=== PATIENT | male | born 1960 | race Two or more races ===

== ENCOUNTER 2018-08-31 15:36 | Emergency (ER) | payer SELFPAY ==
[~2018-08-31] VITALS: Ht 182.9 cm; Wt 81.6 kg
[~2018-08-31 15:36] MED LIST: BENADRYL50 MG PO; CYCLOSPORINE100 MG PO; LASIX40 MG ORAL; LIBRIUM25 MG ORAL; LISINOPRIL10 MG ORAL; METFORMIN HCL500 M1 ORAL; NKM; OMEPRAZOLE20 M2 PO; PEPCID40 MG PO; POTASSIUM CHLO20 ME1 ORAL; SPIRONOLACTONE25 MG PO; glucometer
[2018-08-31] MEDS ORDERED: NKM (15:37)
--- NOTE | 2018-08-31 15:43 | Emergency Room Report ---
History of Present Illness General Chief Complaint: Behavioral Complaint Source: Patient, EMS Present Illness HPI The patient is brought by EMS. His called. He has been binge drinking for the last several days. Prior to that he was sober since December. He has not been taking his medications for hypertension and diabetes. He told paramedics feels that he wants to . He told them his plan is to drink himself to . He denies suicidal ideation to me. The patient is complaining about chest pain. He feels it is sharp and somewhat positional anteriorly. It is not radiating. No prior history of seizures or ulcer disease. He denies DTs. No fevers, chills, palpitations, nausea, vomiting, diarrhea, dysuria, abdominal pain, shortness of breath, visual changes, headache. He denies coffee-ground emesis, hematemesis, melena or hematochezia. Allergies: Coded Allergies: No Known Allergies (Verified , 11/12/08) Patient History Past Medical History: see triage record Social History: Reports: alcohol use Social History Narrative Reviewed Nursing Documentation: PMH: Agreed; PSxH: Agreed Nursing Documentation-PMH Hx Cardiac Problems: Yes - alcohol abuse Hx Hypertension: Yes Hx Diabetes: Yes Hx Neurological Problems: Yes - BRAIN TUMOR Review of Systems All Other Systems: negative except mentioned in HPI Physical Exam Vital Signs Date Time Temp Pulse Resp B/P (MAP) Pulse Ox O2 Delivery O2 Flow Rate FiO2 08/31/18 15:33 99.1 113 18 158/92 (114) 96 Room Air Sp02 EP Interpretation: reviewed, normal General Appearance: normal inspection, no apparent distress, GCS 15, non-toxic , other - Depressed Head: normocephalic Eyes: bilateral eye PERRL, bilateral eye Scleral Injection ENT: moist mucus membranes Neck: supple, no bony tend Respiratory: chest non-tender, lungs clear Cardiovascular #1: regular rate, rhythm Cardiovascular #2: 2+ radial (R) Gastrointestinal: normal inspection, normal bowel sounds, non tender, no mass, non-distended Musculoskeletal: back normal, gait/station normal, normal range of motion Neurologic: alert, oriented x3, director chemistry III-XII nml as tested, motor strength/tone normal, DTRs symmetric, sensory intact, cerebellar normal, speech normal Psychiatric: no suicidal/homicidal ideation, depressed affect Skin: no rash Medical Decision Making Diagnostic Impression: Primary Impression: Abdominal pain Qualified Codes: R10.13 - Epigastric pain Additional Impressions: Hyperglycemia Alcohol intoxication Qualified Codes: F10.929 - Alcohol use, unspecified with intoxication, unspecified ER Course The patient presents with chest pain and suicidal ideation after binge drinking and not taking his medications for diabetes and blood pressure. Differential includes acute myocardial infarction, esophagitis, gastritis, suicidal ideation , exacerbation of depression, hyperglycemia, diabetic ketoacidosis, try to normality amongst others. The patient will be evaluated with EKG, chest x-ray and labs. The patient will receive IV hydration, Pepcid. The patient is placed on a shelter monitor. At some point the patient may need to have psychiatric evaluation. EKG was sinus tachycardia with nonspecific ST-T wave changes. Labs with elevated glucose and BAL. Insulin given IV. C/O pain. Tx with Pepcid and Mylanta. Pain better. States not suicidal. Wants med to help sleep. Awaiting repeat glucose. Accu-Chek 147. Patient improved and ambulatory. Patient stable for outpatient observation and treatment. Laboratory Tests Test 08/31/18 15:53 White Blood Count 6.6 K/UL (4.8-10.8) Red Blood Count 5.67 M/UL (4.70-6.10) Hemoglobin 16.9 G/DL (14.2-18.0) Hematocrit 48.9 % (42.0-52.0) Mean Corpuscular Volume 86 FL (80-99) Mean Corpuscular Hemoglobin 29.8 PG (27.0-31.0) Mean Corpuscular Hemoglobin Concent 34.6 G/DL (32.0-36.0) Red Cell Distribution Width 10.8 % (11.6-14.8) L Platelet Count 276 K/UL (150-450) Mean Platelet Volume 5.2 FL (6.5-10.1) L Neutrophils (%) (Auto) 50.8 % (45.0-75.0) Lymphocytes (%) (Auto) 38.9 % (20.0-45.0) Monocytes (%) (Auto) 8.0 % (1.0-10.0) Eosinophils (%) (Auto) 1.7 % (0.0-3.0) Basophils (%) (Auto) 0.7 % (0.0-2.0) Urine Color Pale yellow Urine Appearance Clear Urine pH 6.5 (4.5-8.0) Urine Specific [place] 1.005 (1.005-1.035) Urine Protein Negative (NEGATIVE) Urine Glucose (UA) 4+ (NEGATIVE) H Urine Ketones Negative (NEGATIVE) Urine Blood Negative (NEGATIVE) Urine Nitrite Negative (NEGATIVE) Urine Bilirubin Negative (NEGATIVE) Urine Urobilinogen Normal MG/DL (0.0-1.0) Urine Leukocyte Esterase Negative (NEGATIVE) Sodium Level 138 MMOL/L (136-145) Potassium Level 3.5 MMOL/L (3.5-5.1) Chloride Level 101 MMOL/L (98-107) Carbon Dioxide Level 26 MMOL/L (21-32) Anion Gap 11 mmol/L (5-15) Blood Urea Nitrogen 9 mg/dL (7-18) Creatinine 0.8 MG/DL (0.55-1.30) Estimate Glomerular Filtration Rate > 60 mL/min (>60) Glucose Level 366 MG/DL (74-106) H Calcium Level 8.5 MG/DL (8.5-10.1) Total Bilirubin 0.5 MG/DL (0.2-1.0) Aspartate Amino Transferase (AST) 41 U/L (15-37) H Alanine Aminotransferase (ALT) 44 U/L (12-78) Alkaline Phosphatase 94 U/L (46-116) Total Creatine Kinase 269 U/L (26-308) Troponin I 0.000 ng/mL (0.000-0.056) Total Protein 8.1 G/DL (6.4-8.2) Albumin 3.6 G/DL (3.4-5.0) Globulin 4.5 g/dL Albumin/Globulin Ratio 0.8 (1.0-2.7) L Salicylates Level 1.1 ug/mL (2.8-20) L Urine Opiates Screen Negative (NEGATIVE) Acetaminophen Level < 2 MCG/ML (10-30) L Urine Barbiturates Screen Negative (NEGATIVE) Phencyclidine (PCP) Screen Negative (NEGATIVE) Urine Amphetamines Screen Negative (NEGATIVE) Urine Benzodiazepines Screen Negative (NEGATIVE) Urine Cocaine Screen Negative (NEGATIVE) Urine Marijuana (THC) Screen Negative (NEGATIVE) Serum Alcohol 337 mg/dL EKG Diagnostic Results Rate: tachycardiac Rhythm: NSR ST Segments: no acute changes Rhythm Strip Diag. Results EP Interpretation: yes Rhythm: no PVC's, no ectopy, other - Sinus tachycardia Chest X-Ray Diagnostic Results Chest X-Ray Diagnostic Results : Chest X-Ray Ordered: Yes # of Views/Limited/Complete: 1 View Indication: Chest Pain EP Interpretation: Yes Interpretation: no consolidation, no effusion, no pneumothorax, other - Right upper lobe Impression: Other Electronically Signed by: Electronically signed by Michael Liu MD Last Vital Signs Date Time Temp Pulse Resp B/P (MAP) Pulse Ox O2 Delivery O2 Flow Rate FiO2 08/31/18 20:30 99.1 92 20 134/90 97 Room Air Status: improved Disposition: HOME, SELF-CARE Condition: Improved Scripts Famotidine (PEPCID AC) 20 Mg Tablet 20 MG PO DAILY, #20 TAB Prov: Michael Liu MD 08/31/18 Hydroxyzine Pamoate (VISTARIL) 25 Mg Capsule 25 MG PO Q8HR PRN for insomnia, #10 CAP Prov: Michael Liu MD 08/31/18 Michael Liu MD Aug 31, 2018 15:43
--- NOTE | 2018-08-31 16:00 | NUR ---
ED Nurse Note:pt. was BIBA from home with ETOH and anxiety problem, VSS, pt. is A/Ox4 ambulatory, blood and urine sent to labs, given IV fluids
[2018-08-31 16:10] LABS: APPEARANCE,URINE CLEAR; BILIRUBIN, URINE NEGATIVE (NEGATIVE); COLOR,URINE PALE YELLOW; GLUCOSE, URINE (UA) 4+ (NEGATIVE); KETONES,URINE NEGATIVE (NEGATIVE); LEUKOCYTE ESTERASE ,URINE NEGATIVE (NEGATIVE); NITRITE,URINE NEGATIVE (NEGATIVE); PH,URINE 6.5 (4.5-8.0); PROTEIN,URINE NEGATIVE (NEGATIVE); UROBILINOGEN,URINE NORMAL MG/DL (0.0-1.0)
[2018-08-31 16:12] VITALS: BP 130/87
[2018-08-31 16:12] LABS: BASOPHILS % (AUTO) 0.7 % (0.0-2.0); EOSINOPHILS % (AUTO) 1.7 % (0.0-3.0); HEMATOCRIT 48.9 % (42.0-52.0); HEMOGLOBIN 16.9 G/DL (14.2-18.0); LYMPHOCYTES % (AUTO) 38.9 % (20.0-45.0); MEAN CORPUSCULAR VOLUME 86 FL (80-99); NEUTROPHILS % (AUTO) 50.8 % (45.0-75.0); PLATELET COUNT 276 K/UL (150-450); RED BLOOD COUNT 5.67 M/UL (4.70-6.10); RED CELL DISTRIBUTION WIDTH 10.8 % (11.6-14.8); WHITE BLOOD COUNT 6.6 K/UL (4.8-10.8)
[2018-08-31 16:31] LABS: ANION GAP 11 mmol/L (5-15); BLOOD UREA NITROGEN 9 mg/dL (7-18); CALCIUM 8.5 MG/DL (8.5-10.1); CARBON DIOXIDE 26 MMOL/L (21-32); CHLORIDE 101 MMOL/L (98-107); CREATININE 0.8 MG/DL (0.55-1.30); POTASSIUM 3.5 MMOL/L (3.5-5.1); SODIUM 138 MMOL/L (136-145)
[2018-08-31 16:37] LABS: ALANINE AMINOTRANSFERASE 44 U/L (12-78); ALBUMIN 3.6 G/DL (3.4-5.0); ALBUMIN/GLOBULIN RATIO 0.8 (1.0-2.7); ALKALINE PHOSPHATASE 94 U/L (46-116); ASPARTATE AMINO TRANSFERASE 41 U/L (15-37); BILIRUBIN,TOTAL 0.5 MG/DL (0.2-1.0); CREATINE KINASE 269 U/L (26-308)
[2018-08-31 17:16] VITALS: BP 116/65
[2018-08-31 18:49] VITALS: BP 134/90
[2018-08-31] MEDS ORDERED: Insulin Human Regular 100units/ml 3ml IV ONE (19:00)
[2018-08-31] MEDS ORDERED: Mylanta II UD 30ml ORAL ONE (19:00)
[2018-08-31] MEDS ORDERED: VISTARIL25 M1 PO (20:21)
[2018-08-31] MEDS ORDERED: PEPCID AC20 M2 PO (20:22)
[2018-08-31 20:30] VITALS: BP 134/90
--- NOTE | 2018-08-31 20:30 | NUR ---
ER DISCHARGE NOTE: Patient is cleared to be discharged per ERMD, pt is aox4, on room air, with stable vital signs. pt was given dc and prescription instructions, pt was able to verbalize understanding, pt id band and iv site removed without complications. pt is able to ambulate with steady gait. pt took all belongings.
--- NOTE | 2018-09-01 12:12 | Diagnostic Imaging Report ---
Indication: Chest pain Technique: One view of the chest Comparison: 08/03/2015 Findings: Lungs and pleural spaces are clear. Heart size is upper limits normal Impression: No acute process
== END 2018-08-31 20:30 | disposition home or self-care (01) ==
LOC: EDBD 15:36 → EMR 16:03
DX: R10.13 Epigastric pain (principal); F10.129 Alcohol abuse with intoxication, unspecified; I10 Essential (primary) hypertension; E11.65 Type 2 diabetes mellitus with hyperglycemia; R45.851 Suicidal ideations
CPT/HCPCS: 36415; 71045; 80053; 80307; 81003; 82550; 82962; 84484; 85025; 93005; 96361; 96374; 96375; 99284; G0480; J1815; J2405; S0028; 80329

== ENCOUNTER 2018-09-02 19:44 | Emergency (ER) | payer MEDICAID ==
[~2018-09-02] VITALS: Ht 180.3 cm; Wt 72.6 kg
[~2018-09-02 19:44] MED LIST changes: +PEPCID AC20 M2 PO; +VISTARIL25 M1 PO
--- NOTE | 2018-09-02 19:45 | NUR ---
ED Nurse Note: Patient biba RA 69 c/o ETOH. patient was just seen here 2 days ago. patient admits to drinking unknown amount, fingerstick glucose showed 346. patient is reporting of 8/10 pain in the lower abdomen area. patient is alert and oriented x4. IV startedo n left AC 18 gauge
[2018-09-02 19:47] VITALS: BP 148/88
[2018-09-02] MEDS ORDERED: Thiamine HCl 100 MG in D5W 55 ML IVPB ONE (20:00)
--- NOTE | 2018-09-02 20:09 | Emergency Room Report ---
History of Present Illness General Chief Complaint: Alcohol Intoxication Source: Patient, EMS Present Illness HPI 58-year-old male who has a history of diabetes and alcoholism presenting with EtOH intoxication. He says that he has been drinking every single day for 3 weeks straight. Says that his whole body feels " very bad". He is very tearful at bedside, he says that he has been cheating on his , said that yesterday he wanted to kill himself with a knife. But he said that he stopped himself after thinking about his grandchildren. He has not sought help for his alcoholism before. No head trauma no loss of consciousness. Says that he takes metformin for his diabetes and he has been compliant with this. Allergies: Coded Allergies: No Known Allergies (Verified , 11/12/08) Patient History Past Medical History: see triage record Past Surgical History: none Pertinent Family History: none Social History: Reports: alcohol use, drug use; Denies: smoking Reviewed Nursing Documentation: PMH: Agreed; PSxH: Agreed Nursing Documentation-PMH Hx Cardiac Problems: Yes - alcohol abuse Hx Hypertension: Yes Hx Diabetes: Yes Hx Neurological Problems: Yes - BRAIN TUMOR Review of Systems All Other Systems: negative except mentioned in HPI Physical Exam Vital Signs Date Time Temp Pulse Resp B/P (MAP) Pulse Ox O2 Delivery O2 Flow Rate FiO2 09/02/18 19:46 98.6 109 18 155/105 (122) 98 Room Air Sp02 EP Interpretation: reviewed, normal General Appearance: alert, GCS 15, moderate distress Head: normocephalic, atraumatic Eyes: bilateral eye normal inspection, bilateral eye PERRL, bilateral eye EOMI ENT: normal ENT inspection, normal pharynx, normal voice, moist mucus membranes Neck: normal inspection, full range of motion, supple Respiratory: normal inspection, lungs clear, normal breath sounds, no respiratory distress, no retraction, no wheezing, speaking full sentences, chest symmetrical Cardiovascular #1: normal inspection, regular rate, rhythm, no edema, normal capillary refill Cardiovascular #2: 2+ radial (R), 2+ radial (L) Gastrointestinal: normal inspection, non tender, soft, non-distended, no guarding Musculoskeletal: normal inspection, back normal, normal range of motion, non- tender Neurologic: alert, responsive, motor strength/tone normal, sensory intact, speech normal, other - intox Psychiatric: depressed affect, anxious Medical Decision Making Diagnostic Impression: Primary Impression: Acute alcoholic intoxication Additional Impressions: Hyperglycemia Depression ER Course 58-year-old male, EtOH DDX: Alcohol intoxication, also voicing suicidal thoughts, depression, hyperglycemia rule out DKA Plan: Obtain labs, ua, ucx, CXR, EKG May need psychiatric evaluation ER course: Patient has remained stable during ED stay. Given IV fluids Patient given Ativan, getting very agitated Signed the patient to Dr. Jones She is pending full sobriety, also voiced suicidal thoughts and said that he attempted to kill himself yesterday with a knife, will need reassessment after his sobriety and may need psychiatric consult Please note that this Emergency Department Report was dictated using [employer] technology software, occasionally this can lead to erroneous entry secondary to interpretation by the dictation equipment EKG Diagnostic Results EP Interpretation: Yes Rate: 100 Rhythm: NSR ST Segments: T wave inversion V2 ASA given to patient: No Laboratory Tests Test 09/02/18 20:00 White Blood Count 11.0 K/UL (4.8-10.8) H Red Blood Count 5.69 M/UL (4.70-6.10) Hemoglobin 16.9 G/DL (14.2-18.0) Hematocrit 48.9 % (42.0-52.0) Mean Corpuscular Volume 86 FL (80-99) Mean Corpuscular Hemoglobin 29.7 PG (27.0-31.0) Mean Corpuscular Hemoglobin Concent 34.6 G/DL (32.0-36.0) Red Cell Distribution Width 10.7 % (11.6-14.8) L Platelet Count 265 K/UL (150-450) Mean Platelet Volume 5.5 FL (6.5-10.1) L Neutrophils (%) (Auto) 75.8 % (45.0-75.0) H Lymphocytes (%) (Auto) 18.5 % (20.0-45.0) L Monocytes (%) (Auto) 5.2 % (1.0-10.0) Eosinophils (%) (Auto) 0.1 % (0.0-3.0) Basophils (%) (Auto) 0.4 % (0.0-2.0) Urine Color Pale yellow Urine Appearance Clear Urine pH 6 (4.5-8.0) Urine Specific [place] 1.010 (1.005-1.035) Urine Protein Negative (NEGATIVE) Urine Glucose (UA) 4+ (NEGATIVE) H Urine Ketones Negative (NEGATIVE) Urine Blood Negative (NEGATIVE) Urine Nitrite Negative (NEGATIVE) Urine Bilirubin Negative (NEGATIVE) Urine Urobilinogen Normal MG/DL (0.0-1.0) Urine Leukocyte Esterase Negative (NEGATIVE) Sodium Level 136 MMOL/L (136-145) Potassium Level 3.4 MMOL/L (3.5-5.1) L Chloride Level 100 MMOL/L (98-107) Carbon Dioxide Level 24 MMOL/L (21-32) Anion Gap 12 mmol/L (5-15) Blood Urea Nitrogen 13 mg/dL (7-18) Creatinine 0.9 MG/DL (0.55-1.30) Estimate Glomerular Filtration Rate > 60 mL/min (>60) Glucose Level 393 MG/DL (74-106) H Calcium Level 8.2 MG/DL (8.5-10.1) L Magnesium Level 2.0 MG/DL (1.5-2.4) Total Bilirubin 0.5 MG/DL (0.2-1.0) Aspartate Amino Transferase (AST) 42 U/L (15-37) H Alanine Aminotransferase (ALT) 54 U/L (12-78) Alkaline Phosphatase 85 U/L (46-116) Troponin I 0.000 ng/mL (0.000-0.056) Total Protein 7.7 G/DL (6.4-8.2) Albumin 3.5 G/DL (3.4-5.0) Globulin 4.2 g/dL Albumin/Globulin Ratio 0.8 (1.0-2.7) L Lipase 97 U/L (73-393) Salicylates Level 1.1 ug/mL (2.8-20) L Urine Opiates Screen Negative (NEGATIVE) Acetaminophen Level < 2 MCG/ML (10-30) L Urine Barbiturates Screen Negative (NEGATIVE) Phencyclidine (PCP) Screen Negative (NEGATIVE) Urine Amphetamines Screen Negative (NEGATIVE) Urine Benzodiazepines Screen Negative (NEGATIVE) Urine Cocaine Screen Negative (NEGATIVE) Urine Marijuana (THC) Screen Negative (NEGATIVE) Serum Alcohol 371 mg/dL Acetone Level Negative (NEGATIVE) Last Vital Signs Date Time Temp Pulse Resp B/P (MAP) Pulse Ox O2 Delivery O2 Flow Rate FiO2 09/02/18 19:46 98.6 109 18 155/105 (122 98 Room Air Gregg Ornelas M.D. Sep 02, 2018 20:09
[2018-09-02 20:26] LABS: APPEARANCE,URINE CLEAR; BILIRUBIN, URINE NEGATIVE (NEGATIVE); COLOR,URINE PALE YELLOW; GLUCOSE, URINE (UA) 4+ (NEGATIVE); KETONES,URINE NEGATIVE (NEGATIVE); LEUKOCYTE ESTERASE ,URINE NEGATIVE (NEGATIVE); NITRITE,URINE NEGATIVE (NEGATIVE); PH,URINE 6 (4.5-8.0); PROTEIN,URINE NEGATIVE (NEGATIVE); UROBILINOGEN,URINE NORMAL MG/DL (0.0-1.0)
[2018-09-02 20:27] LABS: BASOPHILS % (AUTO) 0.4 % (0.0-2.0); EOSINOPHILS % (AUTO) 0.1 % (0.0-3.0); HEMATOCRIT 48.9 % (42.0-52.0); HEMOGLOBIN 16.9 G/DL (14.2-18.0); LYMPHOCYTES % (AUTO) 18.5 % (20.0-45.0); MEAN CORPUSCULAR VOLUME 86 FL (80-99); MONOCYTES % (AUTO) 5.2 % (1.0-10.0); NEUTROPHILS % (AUTO) 75.8 % (45.0-75.0); PLATELET COUNT 265 K/UL (150-450); RED BLOOD COUNT 5.69 M/UL (4.70-6.10); RED CELL DISTRIBUTION WIDTH 10.7 % (11.6-14.8)
[2018-09-02 20:35] LABS: ANION GAP 12 mmol/L (5-15); BLOOD UREA NITROGEN 13 mg/dL (7-18); CALCIUM 8.2 MG/DL (8.5-10.1); CARBON DIOXIDE 24 MMOL/L (21-32); CHLORIDE 100 MMOL/L (98-107); CREATININE 0.9 MG/DL (0.55-1.30); POTASSIUM 3.4 MMOL/L (3.5-5.1); SODIUM 136 MMOL/L (136-145)
[2018-09-02 20:50] LABS: ALANINE AMINOTRANSFERASE 54 U/L (12-78); ALBUMIN 3.5 G/DL (3.4-5.0); ASPARTATE AMINO TRANSFERASE 42 U/L (15-37); BILIRUBIN,TOTAL 0.5 MG/DL (0.2-1.0)
[2018-09-02 20:51] LABS: ALBUMIN/GLOBULIN RATIO 0.8 (1.0-2.7); ALKALINE PHOSPHATASE 85 U/L (46-116)
[2018-09-02] MEDS ORDERED: LORazepam Inj 2mg/ml 1ml IV ONE (21:00)
--- NOTE | 2018-09-02 21:57 | NUR ---
ED Nurse Note: patient sleeping calmy at bedside
[2018-09-03 00:01] VITALS: BP 132/82
[2018-09-03 01:35] VITALS: BP 128/79
[2018-09-03 02:46] VITALS: BP 122/72
--- NOTE | 2018-09-03 02:46 | NUR ---
HAND-OFF: Report given to MIESHA Ace.
--- NOTE | 2018-09-03 03:00 | NUR ---
ED Nurse Note: Received Pt and report from MIESHA Garcia, knowing Pt will have psy eval in the morning. Continue monitor Pt.
[2018-09-03] MEDS ORDERED: LIBRIUM25 MG ORAL (04:40)
[2018-09-03] MEDS ORDERED: chlordiazePOXIDE 25mg Cap ORAL ONE (04:45)
[2018-09-03 05:30] VITALS: BP 131/81
--- NOTE | 2018-09-03 05:30 | NUR ---
ED Nurse Note: Recieved pt from bed 4, pt is here pending sober for discharge, pt is in bed awake, alert and oriented x 4, pt was ambulated by avila Villagran and states pt is not safe for discharge, gait is very unsteady and pt has no family member that drives to come get him, pt also noted with mild tremors and hiccups, v/s taken, denies cp or any pain, no sob or labored breathing, will allow more time to sober before discharge, pt given water and tolerating well.
--- NOTE | 2018-09-03 06:30 | NUR ---
ED Nurse Note: pt in bed more awake and alert, pt is very unsteady and can not walk at this time, pt has severe tremors also, pt states he has no one who can come get him and his daughter will call ub[employer] for him, tp is not safe to travel in uber alone at this time, pt given sandwich and water, denies pain, no sob or labored breathing noted, will continue to monitor and give report to am nurse to resume care and follow for discharge.
[2018-09-03 07:35] VITALS: BP 142/92
--- NOTE | 2018-09-03 07:35 | NUR ---
ED Nurse Note: Pt cleared by health care Provider for discharge. DC instructions/prescription was given and explained to pt and verbalized understanding of teachings. All medical devices such as ID band removed. Pt is AAO x4, ambulatory and left with all personal belongings. pt calling family to hot die picker pt. pt amb steady gait to waiting room
--- NOTE | 2018-09-03 14:12 | Diagnostic Imaging Report ---
Indication: Chest pain Comparison: 08/31/2018 A single view chest radiograph was obtained. Findings: Borderline cardiomegaly is present. Lungs are clear but hypoinflated. Bones are unremarkable. IMPRESSION: No acute disease
--- NOTE | 2018-09-03 17:05 | Cardiology Report ---
APPROVED REPORT EKG Measurement Heart [id number] Normal sinus rhythm Possible Left atrial enlargement Rightward axis Incomplete right bundle branch block Cannot rule out Anterior infarct, age undetermined Abnormal ECG
== END 2018-09-03 07:35 | disposition home or self-care (01) ==
LOC: EDBD 19:44 → EMR 20:48
DX: F10.129 Alcohol abuse with intoxication, unspecified (principal); F32.9 Major depressive disorder, single episode, unspecified; E11.65 Type 2 diabetes mellitus with hyperglycemia; I10 Essential (primary) hypertension; Z91.14 Patient's other noncompliance with medication regimen; R45.851 Suicidal ideations
CPT/HCPCS: 36415; 71045; 80053; 80307; 80329; 81003; 82009; 83690; 83735; 84484; 85025; 93005; 96361; 96365; 96375; 99284

== ENCOUNTER 2019-02-01 15:45 | Inpatient (IN) | payer MEDICAID ==
[~2019-02-01] VITALS: Ht 180.3 cm; Wt 79.5 kg
[2019-02-01 16:05] VITALS: BP 153/84
--- NOTE | 2019-02-01 16:05 | NUR ---
ED Nurse Note: Pt walked into ED w/ c/o abdominal pain midsection radiating to back pain 11/27. Pain started last night 2100. Pt vomited 2x last night. Pt is set up on monitor. Will cont to monitor. Abdomen soft and tender.
[2019-02-01] MEDS ORDERED: Ketorolac 30mg Inj IV ONE (16:15)
[2019-02-01 16:48] LABS: BASOPHILS % (AUTO) 0.6 % (0.0-2.0); EOSINOPHILS % (AUTO) 0.9 % (0.0-3.0); HEMATOCRIT 43.4 % (42.0-52.0); HEMOGLOBIN 15.4 G/DL (14.2-18.0); LYMPHOCYTES % (AUTO) 11.5 % (20.0-45.0); MEAN CORPUSCULAR VOLUME 84 FL (80-99); MONOCYTES % (AUTO) 6.7 % (1.0-10.0); NEUTROPHILS % (AUTO) 80.3 % (45.0-75.0); PLATELET COUNT 247 K/UL (150-450); RED BLOOD COUNT 5.15 M/UL (4.70-6.10); RED CELL DISTRIBUTION WIDTH 10.6 % (11.6-14.8); WHITE BLOOD COUNT 13.4 K/UL (4.8-10.8)
[2019-02-01 16:48] LABS: APPEARANCE,URINE CLEAR; BILIRUBIN, URINE NEGATIVE (NEGATIVE); GLUCOSE, URINE (UA) 2+ (NEGATIVE); KETONES,URINE 1+ (NEGATIVE); LEUKOCYTE ESTERASE ,URINE NEGATIVE (NEGATIVE); NITRITE,URINE NEGATIVE (NEGATIVE); PH,URINE 8 (4.5-8.0); PROTEIN,URINE 2+ (NEGATIVE); UROBILINOGEN,URINE NORMAL MG/DL (0.0-1.0)
[2019-02-01 16:49] LABS: COLOR,URINE YELLOW
[2019-02-01 16:51] LABS: ANION GAP 9 mmol/L (5-15); BLOOD UREA NITROGEN 17 mg/dL (7-18); CALCIUM 8.5 MG/DL (8.5-10.1); CARBON DIOXIDE 29 MMOL/L (21-32); CHLORIDE 100 MMOL/L (98-107); CREATININE 0.8 MG/DL (0.55-1.30); POTASSIUM 3.8 MMOL/L (3.5-5.1); SODIUM 137 MMOL/L (136-145)
[2019-02-01 16:55] LABS: ALANINE AMINOTRANSFERASE 29 U/L (12-78); ALBUMIN 3.9 G/DL (3.4-5.0); ALKALINE PHOSPHATASE 68 U/L (46-116); ASPARTATE AMINO TRANSFERASE 20 U/L (15-37); BILIRUBIN,TOTAL 0.5 MG/DL (0.2-1.0)
--- NOTE | 2019-02-01 17:21 | Emergency Room Report ---
History of Present Illness General Chief Complaint: Abdominal Pain Source: Patient Present Illness HPI 59-year-old male presents ED for evaluation. Complaining of abdominal pain with nausea and vomiting. Started last night. Pain is epigastric, burning, 8 out of 10, nonradiating. Denies chest pain or shortness of breath. Denies alcohol use. Denies any diarrhea. States he felt febrile at home. Afebrile here. Denies recent travel. No other aggravating relieving factors. Denies any other associated symptoms Allergies: Coded Allergies: No Known Allergies (Unverified , 10/12/06) Patient History Past Medical History: DM, HTN Pertinent Family History: none Social History: Denies: smoking, alcohol use, drug use Immunizations: UTD Reviewed Nursing Documentation: PMH: Agreed; PSxH: Agreed Nursing Documentation-PMH Past Medical History: No History, Except For Hx Hypertension: Yes Hx Diabetes: Yes Review of Systems All Other Systems: negative except mentioned in HPI Physical Exam Vital Signs Date Time Temp Pulse Resp B/P (MAP) Pulse Ox O2 Delivery O2 Flow Rate FiO2 02/01/19 15:51 97.7 91 20 164/92 (116) 99 Room Air 02/01/19 16:05 99 Sp02 EP Interpretation: reviewed, normal General Appearance: no apparent distress, alert, GCS 15, non-toxic Head: normocephalic, atraumatic Eyes: bilateral eye normal inspection, bilateral eye PERRL ENT: hearing grossly normal, normal pharynx, no angioedema, normal voice Neck: full range of motion, supple/symm/no masses Respiratory: chest non-tender, lungs clear, normal breath sounds, speaking full sentences Cardiovascular #1: regular rate, rhythm, no edema Cardiovascular #2: 2+ carotid (R), 2+ carotid (L), 2+ radial (R), 2+ radial (L) , 2+ dorsalis pedis (R), 2+ dorsalis pedis (L) Gastrointestinal: normal bowel sounds, soft, non-distended, no guarding, no rebound, tenderness - epigastric Rectal: deferred Genitourinary: normal inspection, no CVA tenderness Musculoskeletal: back normal, normal range of motion, gait/station normal, non- tender Neurologic: alert, motor strength/tone normal, oriented x3, sensory intact, responsive, speech normal Psychiatric: judgement/insight normal, memory normal, mood/affect normal, no suicidal/homicidal ideation Reflexes: 3+ bicep (R), 3+ bicep (L), 3+ tricep (R), 3+ tricep (L), 3+ knee (R) , 3+ knee (L) Lymphatic: no adenopathy Medical Decision Making Diagnostic Impression: Primary Impression: Cholecystitis ER Course Hospital Course 59 yo M presents with epigastric pain. Differential diagnoses include: ACS/SC, cholecystitis, small bowel obstruction Clinical course Patient placed on stretcher. panel monitor. After initial history and physical I ordered labs, IV fluids, EKG, pain medication and CT Labs - noted leukocytosis, Hb/Hct stable. electrolytes ok. LFTs ok CT A/P - cholecytitis Antibiotics given. Case discussed with Dr. Willams and he agreed to consult. Case discussed with Dr. Arredondo and he agreed to accept the patient to his service for further care and support I feel this is a highly complex case requiring extensive working including EKG/ Rhythm strip, Xray/CT/US, Blood/urine lab work, repeat exams while in ED, and administration of strong opiates/narcotics for pain control, admission to hospital or close patient follow up. Diagnosis - cholecystitis [facility] Labs Test 02/01/19 16:30 02/01/19 16:35 Urine Color Yellow Urine Appearance Clear Urine pH 8 (4.5-8.0) Urine Specific [place] 1.010 (1.005-1.035) Urine Protein 2+ (NEGATIVE) Urine Glucose (UA) 2+ (NEGATIVE) Urine Ketones 1+ (NEGATIVE) Urine Blood Negative (NEGATIVE) Urine Nitrite Negative (NEGATIVE) Urine Bilirubin Negative (NEGATIVE) Urine Urobilinogen Normal MG/DL (0.0-1.0) Urine Leukocyte Esterase Negative (NEGATIVE) Urine RBC 0-2 /HPF (0 - 0) Urine WBC 0-2 /HPF (0 - 0) Urine Squamous Epithelial Cells None /LPF (NONE/OCC) Urine Bacteria Few /HPF (NONE) White Blood Count 13.4 K/UL (4.8-10.8) Red Blood Count 5.15 M/UL (4.70-6.10) Hemoglobin 15.4 G/DL (14.2-18.0) Hematocrit 43.4 % (42.0-52.0) Mean Corpuscular Volume 84 FL (80-99) Mean Corpuscular Hemoglobin 29.8 PG (27.0-31.0) Mean Corpuscular Hemoglobin Concent 35.4 G/DL (32.0-36.0) Red Cell Distribution Width 10.6 % (11.6-14.8) Platelet Count 247 K/UL (150-450) Mean Platelet Volume 5.8 FL (6.5-10.1) Neutrophils (%) (Auto) 80.3 % (45.0-75.0) Lymphocytes (%) (Auto) 11.5 % (20.0-45.0) Monocytes (%) (Auto) 6.7 % (1.0-10.0) Eosinophils (%) (Auto) 0.9 % (0.0-3.0) Basophils (%) (Auto) 0.6 % (0.0-2.0) Sodium Level 137 MMOL/L (136-145) Potassium Level 3.8 MMOL/L (3.5-5.1) Chloride Level 100 MMOL/L (98-107) Carbon Dioxide Level 29 MMOL/L (21-32) Anion Gap 9 mmol/L (5-15) Blood Urea Nitrogen 17 mg/dL (7-18) Creatinine 0.8 MG/DL (0.55-1.30) Estimat Glomerular Filtration Rate > 60 mL/min (>60) Glucose Level 193 MG/DL (74-106) Calcium Level 8.5 MG/DL (8.5-10.1) Total Bilirubin 0.5 MG/DL (0.2-1.0) Aspartate Amino Transf (AST/SGOT) 20 U/L (15-37) Alanine Aminotransferase (ALT/SGPT) 29 U/L (12-78) Alkaline Phosphatase 68 U/L (46-116) Troponin I 0.009 ng/mL (0.000-0.056) Total Protein 7.7 G/DL (6.4-8.2) Albumin 3.9 G/DL (3.4-5.0) Globulin 3.8 g/dL Albumin/Globulin Ratio 1.0 (1.0-2.7) Lipase 141 U/L (73-393) EKG Diagnostic Results Rate: normal Rhythm: NSR ST Segments: no acute changes ASA given to the pt in ED: No Rhythm Strip Diag. Results EP Interpretation: yes Rhythm: NSR, no PVC's, no ectopy CT/MRI/US Diagnostic Results CT/MRI/US Diagnostic Results : Imaging Test Ordered: CT A/P Impression CT ABDOMEN & PELVIS With Contrast: EXAM: CT Abdomen and Pelvis With Intravenous Contrast CLINICAL HISTORY: ABD PAIN TECHNIQUE: Axial computed tomography images of the abdomen and pelvis with intravenous contrast. Coronal and sagittal reformatted images were created and reviewed. COMPARISON: Abdominal ultrasound of October 13, 2006. FINDINGS: Lung bases: The lung bases are unremarkable. ABDOMEN: Liver: Normal Gallbladder and bile ducts: Distended gallbladder with somewhat irregular wall thickening and multiple gallstones. Pancreas: Normal Spleen: Normal Adrenals: Normal . Kidneys and ureters: Normal Stomach and bowel: Normal Appendix: Normal . It measures 7.5 mm in diameter PELVIS: Bladder: Normal Reproductive: Normal ABDOMEN and PELVIS: Intraperitoneal space: No free intraperitoneal fluid or free intraperitoneal gas. Bones/joints: Unremarkable. No acute fracture. No dislocation. Soft tissues: Intramuscular lipoma in the left quadratus femoris muscle Vasculature: Normal. Lymph nodes: Normal . Last Vital Signs Date Time Temp Pulse Resp B/P (MAP) Pulse Ox O2 Delivery O2 Flow Rate FiO2 02/01/19 16:05 99 17 Room Air 99 02/01/19 16:05 98.5 153/84 99 Status: improved Disposition: ADMITTED INPATIENT Condition: Serious Gary Looney MD Feb 01, 2019 17:21
[2019-02-01] MEDS ORDERED: Morphine Sulfate 4mg/ml Inj (IV USE ONLY) IVP ONE (17:45)
[2019-02-01] MEDS ORDERED: Omnipaque-300 100ml vial INJ PRN (17:45)
[2019-02-01 18:05] VITALS: BP 150/78
--- NOTE | 2019-02-01 18:46 | Diagnostic Imaging Report ---
Clinical Indication: Abdominal pain, nausea, vomiting Technique: No oral contrast utilized, per emergency room physician request. IV administration nonionic contrast. Venous phase spiral acquisition obtained through the abdomen and pelvis. Multiplanar reconstructions were generated. Total dose length product 1475 mGycm. CTDIvol(s) 22 mGy. Dose reduction achieved using automated exposure control Comparison: none Findings: The appendix is mildly enlarged, measuring up to 8 mm diameter, and fluid-filled. There is only minimal if any infiltration of the periappendiceal fat, however. No extraluminal gas or fluid is evident. Normal caliber small bowel. No free or loculated intraperitoneal gas or fluid is evident. No evidence of colonic diverticulosis or diverticulitis. There is a small sliding-type hiatal hernia. Distal esophagus, stomach, duodenum are otherwise unremarkable. The liver demonstrates a 1.4 cm cyst within segment 8. Gallbladder contains multiple gallstones. There is some pericholecystic edema. No biliary ductal dilatation. The pancreas, spleen, adrenals, kidneys are unremarkable. No renal or ureteral calculi, hydronephrosis, or hydroureter. The lungs demonstrate posterior dependent atelectatic changes. The bones demonstrate degenerative spondylosis changes. Impression: Cholelithiasis. Gallbladder wall edema raises concern for acute cholecystitis Prominent fluid-filled appendix. Of doubtful significance given absence of periappendiceal inflammation, but the possibility of early acute appendicitis should also be considered Incidental findings small sliding-type hiatal hernia, right lobe liver cyst, degenerative spondylosis This essentially agrees with the preliminary interpretation provided overnight by [facility]eradiology service. Findings also discussed by phone with Dr. Willams at the time of interpretation The CT scanner at [facility] is accredited by the [employer] and the scans are performed using protocols designed to limit radiation exposure to as low as reasonably achievable to attain images of sufficient resolution adequate for diagnostic evaluation.
[2019-02-01] MEDS ORDERED: Piperacillin/Tazobactam 3.375 GM in NS 110 ML IVPB ONE (19:15)
--- NOTE | 2019-02-01 19:25 | NUR ---
ED Nurse Note: pt care endorsed by MIESHA Andujar. pt does not appear to be in any distress, spouse is at bedside. will continue to monitor
--- NOTE | 2019-02-01 19:55 | NUR ---
ED Nurse Note: pt is groaning and states that he is still in px, 4 mg of IV morphine given 30 min ago. ERMD notified.
[2019-02-01 20:13] VITALS: BP 150/98
[2019-02-01] MEDS ORDERED: HYDROmorphone 1mg/ml Carpuject IVP ONE (20:30)
--- NOTE | 2019-02-01 20:48 | NUR ---
ED Nurse Note: Report given to MIESHA Lanza
--- NOTE | 2019-02-01 22:00 | NUR ---
NURSE NOTES: patient transferred from ER by Nanci. AAOx4 in room air. pt c/o abdominal pain 08/27 and as order, morphine was given @ 2233. NS w/KCL 20 mEq @ 125ml/hr infusing. no acute distress noted. call light within reach. bed is the lowest position. will continue to provide plan of care.
[2019-02-01] MEDS: Morphine Sulfate 2mg/ml Inj(IV/IM USE ONLY) IVP PRN (22:33)
[2019-02-01] MEDS: NS w/KCl 20mEq 1000ml 1,000 ML IV SCH (22:39)
[2019-02-01] MEDS: NovoLOG Insulin Flexpen SUBQ SCH (22:40)
[2019-02-01] MEDS: Piperacillin/Tazobactam 3.375 GM in NS 110 ML IVPB SCH (23:40)
[2019-02-02] VITALS (12 sets, daily range): BP systolic 107–144; BP diastolic 61–86
--- NOTE | 2019-02-02 00:28 | Diagnostic Imaging Report ---
Indication: Abdominal pain, abnormal recent sonogram Technique: House-scale and duplex images of the upper abdomen were obtained Comparison: Abdomen pelvis CT performed earlier the same date Findings: Gallbladder demonstrates gallstones. Gallbladder wall is thickened, measuring up to 10 mm thick. There is pericholecystic fluid. Sonographic Zarate's sign is positive. Common bile duct measures 4 mm in diameter. No intrahepatic biliary ductal dilatation. Liver demonstrates equivocally increased echogenicity, could indicate fatty change. Portal vein and hepatic veins are patent. Pancreas is incompletely visualized due to overlying bowel gas, visualized pancreatic head somewhat prominent. Spleen is unremarkable. Left kidney measures 14 cm in length. Right kidney measures 11.1 cm length. Both kidneys demonstrate normal echogenicity. There is no hydronephrosis. No focal abnormality . Non-aneurysmal abdominal aorta . Impression: Cholelithiasis. Gallbladder wall thickening, pericholecystic fluid, and positive sonographic Zarate's sign raises concern for acute cholecystitis No biliary ductal dilatation Equivocally increased hepatic echogenicity, could indicate fatty change, although this is not corroborated by recent CT scan Note incomplete visualization of the pancreas. Pancreatic head appears somewhat prominent sonographically, but this is likewise not corroborated on recent CT Note that hepatic cysts described on recent CT scan is not sonographically evident.
[2019-02-02] MEDS: NS w/KCl 20mEq 1000ml 1,000 ML IV SCH ×3 (06:07→21:49)
[2019-02-02] MEDS: Piperacillin/Tazobactam 3.375 GM in NS 110 ML IVPB SCH ×3 (06:07→21:11)
[2019-02-02] MEDS: Morphine Sulfate 2mg/ml Inj(IV/IM USE ONLY) IVP PRN ×2 (06:07→10:56)
[2019-02-02] MEDS: NovoLOG Insulin Flexpen SUBQ SCH ×4 (06:09→21:10)
[2019-02-02 07:17] LABS: BASOPHILS % (AUTO) 0.3 % (0.0-2.0); EOSINOPHILS % (AUTO) 0.2 % (0.0-3.0); HEMATOCRIT 42.9 % (42.0-52.0); LYMPHOCYTES % (AUTO) 6.4 % (20.0-45.0); MEAN CORPUSCULAR VOLUME 85 FL (80-99); MONOCYTES % (AUTO) 8.8 % (1.0-10.0); NEUTROPHILS % (AUTO) 84.2 % (45.0-75.0); PLATELET COUNT 234 K/UL (150-450); RED BLOOD COUNT 5.03 M/UL (4.70-6.10); WHITE BLOOD COUNT 15.7 K/UL (4.8-10.8)
--- NOTE | 2019-02-02 07:47 | NUR ---
HAND-OFF: Report given to Kash WHITESIDE.
[2019-02-02 08:06] LABS: ALANINE AMINOTRANSFERASE 52 U/L (12-78); ALBUMIN 3.4 G/DL (3.4-5.0); ALKALINE PHOSPHATASE 56 U/L (46-116); ANION GAP 8 mmol/L (5-15); ASPARTATE AMINO TRANSFERASE 33 U/L (15-37); BILIRUBIN,DIRECT 0.2 MG/DL (0.0-0.3); BILIRUBIN,TOTAL 0.8 MG/DL (0.2-1.0); BLOOD UREA NITROGEN 11 mg/dL (7-18); CALCIUM 8.4 MG/DL (8.5-10.1); CARBON DIOXIDE 25 MMOL/L (21-32); CHLORIDE 101 MMOL/L (98-107); CREATININE 0.7 MG/DL (0.55-1.30); POTASSIUM 3.7 MMOL/L (3.5-5.1); SODIUM 134 MMOL/L (136-145)
[2019-02-02 08:26] LABS: INR 1.1 (0.9-1.1)
--- NOTE | 2019-02-02 11:02 | NUR ---
NURSE NOTES: patient is in procedure HIDA scan. Nurse was called to administer morphine in the middle of the procedure. Given slowly IVP 2mg morphine through RAC access.
--- NOTE | 2019-02-02 11:33 | NUR ---
NM Hepatobiliary (HIDA) scan complete.
--- NOTE | 2019-02-02 12:08 | Anethesia Preoperative Eval ---
Anesthesia Pre-op PMH/ROS General Date of Evaluation: Feb 02, 2019 Time of Evaluation: 13:11 Anesthesiologist: Kate ASA Score: ASA 3 Mallampati Score Class I : Soft palate, uvula, fauces, pillars visible Class II: Soft palate, uvula, fauces visible Class III: Soft palate, base of uvula visible Class IV: Only hard plate visible Mallampati Classification: Class II Surgeon: Imer Diagnosis: Acute Cholecystitis Surgical Procedure: Laparoscopic Cholecystectomy Anesthesia History: none Family History: no anesthesia problems Allergies: Coded Allergies: No Known Allergies (Unverified , 10/12/06) Medications: see eMAR Patient NPO?: Yes Past Medical History Cardiovascular: Reports: HTN Endocrine: Reports: DM Anesthesia Pre-op Phys. Exam Physician Exam Last Vital Signs Date Time Temp Pulse Resp B/P (MAP) Pulse Ox O2 Delivery O2 Flow Rate FiO2 02/02/19 11:26 100.6 02/02/19 08:00 93 20 132/80 (97) 98 93 02/02/19 00:55 Room Air 02/01/19 20:50 99 Constitutional: NAD Neurologic: CN 2-12 intact Cardiovascular: RRR Respiratory: CTA Gastrointestinal: S/NT/ND Airway Exam Mallampati Score: Class II MO: full ROM: full Teeth: missing, intact Anesthesia Pre-op A/P Labs Hematology Test 02/01/19 16:35 02/02/19 06:34 White Blood Count 13.4 K/UL (4.8-10.8) H 15.7 K/UL (4.8-10.8) H Red Blood Count 5.15 M/UL (4.70-6.10) 5.03 M/UL (4.70-6.10) Hemoglobin 15.4 G/DL (14.2-18.0) 15.0 G/DL (14.2-18.0) Hematocrit 43.4 % (42.0-52.0) 42.9 % (42.0-52.0) Mean Corpuscular Volume 84 FL (80-99) 85 FL (80-99) Mean Corpuscular Hemoglobin 29.8 PG (27.0-31.0) 29.8 PG (27.0-31.0) Mean Corpuscular Hemoglobin Concent 35.4 G/DL (32.0-36.0) 35.0 G/DL (32.0-36.0) Red Cell Distribution Width 10.6 % (11.6-14.8) L 11.0 % (11.6-14.8) L Platelet Count 247 K/UL (150-450) 234 K/UL (150-450) Mean Platelet Volume 5.8 FL (6.5-10.1) L 6.2 FL (6.5-10.1) L Neutrophils (%) (Auto) 80.3 % (45.0-75.0) H 84.2 % (45.0-75.0) H Lymphocytes (%) (Auto) 11.5 % (20.0-45.0) L 6.4 % (20.0-45.0) L Monocytes (%) (Auto) 6.7 % (1.0-10.0) 8.8 % (1.0-10.0) Eosinophils (%) (Auto) 0.9 % (0.0-3.0) 0.2 % (0.0-3.0) Basophils (%) (Auto) 0.6 % (0.0-2.0) 0.3 % (0.0-2.0) Coagulation Test 02/02/19 07:57 Prothrombin Time 11.3 SEC (9.30-11.50) Prothromb Time International Ratio 1.1 (0.9-1.1) Activated Partial Thromboplast Time 31 SEC (23-33) Chemistry Test 02/01/19 16:35 02/02/19 06:34 Sodium Level 137 MMOL/L (136-145) 134 MMOL/L (136-145) L Potassium Level 3.8 MMOL/L (3.5-5.1) 3.7 MMOL/L (3.5-5.1) Chloride Level 100 MMOL/L (98-107) 101 MMOL/L (98-107) Carbon Dioxide Level 29 MMOL/L (21-32) 25 MMOL/L (21-32) Anion Gap 9 mmol/L (5-15) 8 mmol/L (5-15) Blood Urea Nitrogen 17 mg/dL (7-18) 11 mg/dL (7-18) Creatinine 0.8 MG/DL (0.55-1.30) 0.7 MG/DL (0.55-1.30) Estimat Glomerular Filtration Rate > 60 mL/min (>60) > 60 mL/min (>60) Glucose Level 193 MG/DL (74-106) H 172 MG/DL (74-106) H Calcium Level 8.5 MG/DL (8.5-10.1) 8.4 MG/DL (8.5-10.1) L Total Bilirubin 0.5 MG/DL (0.2-1.0) 0.8 MG/DL (0.2-1.0) Aspartate Amino Transf (AST/SGOT) 20 U/L (15-37) 33 U/L (15-37) Alanine Aminotransferase (ALT/SGPT) 29 U/L (12-78) 52 U/L (12-78) Alkaline Phosphatase 68 U/L (46-116) 56 U/L (46-116) Troponin I 0.009 ng/mL (0.000-0.056) Total Protein 7.7 G/DL (6.4-8.2) 7.2 G/DL (6.4-8.2) Albumin 3.9 G/DL (3.4-5.0) 3.4 G/DL (3.4-5.0) Globulin 3.8 g/dL Albumin/Globulin Ratio 1.0 (1.0-2.7) Lipase 141 U/L (73-393) 88 U/L (73-393) Direct Bilirubin 0.2 MG/DL (0.0-0.3) Thyroid Stimulating Hormone (TSH) 0.347 uiU/mL (0.358-3.740) Risk Assessment & Plan Assessment: ASA 3 Plan: GA, SED, GlideScope Go Status Change Before Surgery: No Pre-Antibiotics Dru Grams Ancef IV Given Within 1 Hr of Incision: Yes Time Given: 13:41 Manjinder Love MD Feb 02, 2019 12:08
[2019-02-02] MEDS ORDERED: Lidocaine 1% MPF 10mg/ml 5ml ONE (12:29)
[2019-02-02] MEDS ORDERED: Propofol 200mg/20ml IV ONE (12:29)
[2019-02-02] MEDS ORDERED: Sodium Chloride 10ml vial INJ ONE (12:29)
[2019-02-02] MEDS ORDERED: fentaNYL 100 mcg/2 mL IV ONE ×2 (12:30→14:31)
[2019-02-02] MEDS ORDERED: LR 1000ml 1,000 ML IVLG SCH (12:37)
[2019-02-02] MEDS ORDERED: fentaNYL 100 mcg/2 mL IV PRN (12:45)
[2019-02-02] MEDS ORDERED: Hydromorphone 0.5mg/0.5ml inj IVP PRN (12:45)
[2019-02-02] MEDS ORDERED: Acetaminophen (Non formulary) 100 ML IV ONE (12:45)
[2019-02-02] MEDS ORDERED: Atropine Sulfate 0.4mg/ml inj IVP PRN (12:45)
[2019-02-02] MEDS ORDERED: LORazepam Inj 2mg/ml 1ml IV PRN (12:45)
[2019-02-02] MEDS ORDERED: DiphenhydrAMINE 50mg/ml Inj IVP PRN (12:45)
[2019-02-02] MEDS ORDERED: Midazolam 2mg/2ml Inj IVP PRN (12:45)
[2019-02-02] MEDS ORDERED: Labetalol 5mg/ml 20ml vial IV PRN (12:45)
[2019-02-02] MEDS ORDERED: HYDROcodone/Acetamin 5/325 tab ORAL PRN ×2 (12:45→16:15)
[2019-02-02] MEDS ORDERED: HYDROcodone/Acetamin 7.5/325 tab ORAL PRN (12:45)
[2019-02-02] MEDS ORDERED: Metoclopramide 10mg/2ml Inj IVP PRN ×2 (12:45→16:15)
[2019-02-02] MEDS ORDERED: oxyCODONE HCL/Acetaminophen 5/325mg ORAL PRN (12:45)
[2019-02-02] MEDS ORDERED: Meperidine 50mg/ml Inj(FOR RIGORS ONLY) IVP PRN (12:45)
--- NOTE | 2019-02-02 12:52 | NUR ---
NURSE NOTES: patient was transported to OR, by transported, went by bed. Daughters by his side, made aware. No consent as of yet as no order, SOLAR SALES ASSESSOR made aware. Also, reported no am PO med given, as it was not clarified under request. Patient in stable vs, still c/o pain after morphine given during HIDA procedure.
[2019-02-02] MEDS ORDERED: Lidocaine 1% 10mg/ml/Epi 0.005mg/ml 30ml vial INJ ONE ×2 (13:05→13:17)
[2019-02-02] MEDS ORDERED: Iothalamate Meglumine 60% 30ML INJ ONE ×2 (13:05→13:17)
--- NOTE | 2019-02-02 13:06 | Diagnostic Imaging Report ---
Indications: Abdominal pain, cholelithiasis Technique: IV administration 5.6 mCi 99 M technetium Choletec. Serial images obtained over the abdomen for 2 hrs. At one hour, 2 mg of morphine given IV Comparison: None Findings: Prompt tracer uptake within the liver. Extrahepatic bile ducts are seen at for minutes. Excretion into the duodenum demonstrated at 7 minutes. The gallbladder is never visualized Impression: Nonvisualized gallbladder, consistent with acute cholecystitis Patent common bile duct Dr. Willams previously notified of the findings
--- NOTE | 2019-02-02 13:19 | Pre-Procedure Note/Attestation ---
Pre-Procedure Note/Attestation Complete Prior to Procedure Planned Procedure: not applicable Procedure Narrative: Laparoscopic cholecystectomy, possible open, possible intraoperative cholangiogram, possible appendectomy Indications for Procedure Pre-Operative Diagnosis: acute cholecystitis possible acute appendicitis Attestation I attest that I discussed the nature of the procedure; its benefits; risks and complications; and alternatives (and the risks and benefits of such alternatives ), prior to the procedure, with the patient (or the patient's legal telemarketing sales representative). I attest that, if there was a reasonable possibility of needing a blood transfusion, the patient (or the patient's legal telemarketing sales representative) was given the [facility] standardized written summary, pursuant to the [place] Blood Safety Act ([place] Health and Safety Code # 1645, as amended). I attest that I re-evaluated the patient just prior to the surgery and that there has been no change in the patient's H&P, except as documented below: Douglas Willams Feb 02, 2019 13:19
--- NOTE | 2019-02-02 13:22 | Consultation ---
History of Present Illness General Date patient seen: Feb 02, 2019 Reason for Hospitalization: Abdominal Pain Present Illness HPI 59M with hx of DM on metformin presented to [facility] ED c/o right sided abdominal pain for 1 day. Pain associated with nausea and non bloody emesis. pain radiated to back. pain 8/10 RUQ and some RLQ. In ED noted to have leukocytosis and abnormal labs. US with acute tesfaye, CT with acute tesfaye and questionable possible acute appendicitis. Admitted for care and management, started on IV Abx, surgery called. worsening leukocytosis on ABX. HIDA positive. Allergies: Coded Allergies: No Known Allergies (Unverified , 10/12/06) Medication History Scheduled Acetaminophen* (Acetaminophen Extra Strength*), 500 MG ORAL Q6H, (Reported) Amlodipine Besylate* (Amlodipine Besylate*), 5 MG ORAL DAILY, (Reported) Aspirin* (Aspir 81*), 81 MG ORAL DAILY, (Reported) Atorvastatin Calcium* (Atorvastatin Calcium*), 40 MG ORAL BEDTIME, (Reported) Cholecalciferol (Vitamin D3) (Vitamin D3), 2,000 UNIT PO DAILY, (Reported) Lisinopril* (Lisinopril*), 40 MG ORAL DAILY, (Reported) Metformin Hcl* (Metformin Hcl*), 1,000 MG ORAL TWICE A DAY, (Reported) Scheduled PRN Blood Sugar Diagnostic (Blood Glucose Test Strip), 1 EACH [facility] PRN PRN for GLUCOSE MONITORING, (Reported) Patient History History Provided By: Patient Healthcare decision maker Resuscitation status Advanced Directive on File Past Medical/Surgical History Past Medical/Surgical History: (1) Abdominal pain (2) Acute cholecystitis (3) Acute appendicitis (4) Diabetes Review of Systems Review of Symptoms General ROS: no weight loss or fever Psychological ROS: no depression or mood changes, no memory loss Ophthalmic ROS: no visual changes or eye irritation ENT ROS: no nasal congestion, hearing loss, dizziness Allergy and Immunology ROS: no allergic symptoms or urticaria Hematological and Lymphatic ROS: no swollen glands, unusual bleeding or bruising Endocrine ROS: no polyuria, polydipsia, weight changes, temperature intolerance Respiratory ROS: no cough, shortness of breath, or wheezing Cardiovascular ROS: no chest pain or dyspnea on exertion Gastrointestinal ROS: abdominal pain, bright red blood in stool. Musculoskeletal ROS: no myalgias or arthralgias Neurological ROS: no TIA or stroke symptoms Dermatological ROS: no new or changing skin lesions, rashes or pruritis Physical Exam Physical Exam General appearance: alert, cooperative, no distress, appears stated age Head: Normocephalic, without obvious abnormality, atraumatic Eyes: conjunctivae/corneas clear. PERRL, EOM's intact. Fundi benign Throat: Lips, mucosa, and tongue normal. Teeth and gums normal Neck: supple, symmetrical, trachea midline, no adenopathy, thyroid: not enlarged, symmetric, no tenderness/mass/nodules, no carotid bruit and no JVD Lungs: clear to auscultation bilaterally Heart: regular rate and rhythm, S1, S2 normal, no murmur, click, rub or gallop Abdomen: soft, RUQ and RLQ tender. Bowel sounds normal. No masses, no organomegaly Extremities: extremities normal, atraumatic, no cyanosis or edema Pulses: 2+ and symmetric Skin: Skin color, texture, turgor normal. No rashes or lesions Neurologic: Grossly normal Last 24 Hour Vital Signs Date Time Temp Pulse Resp B/P (MAP) Pulse Ox O2 Delivery O2 Flow Rate FiO2 02/02/19 12:00 98.9 99 19 144/84 (104) 98 02/02/19 11:26 100.6 02/02/19 09:00 Room Air 02/02/19 08:00 100.6 93 20 132/80 (97) 98 93 02/02/19 04:00 98.7 73 22 144/86 (105) 97 02/02/19 00:55 Room Air 02/02/19 00:37 Room Air 02/01/19 22:38 80 132/68 02/01/19 20:50 98.5 60 20 150/98 100 Room Air 99 02/01/19 20:32 98.5 02/01/19 20:13 60 20 150/98 100 Room Air 02/01/19 18:05 98.1 66 18 150/78 95 Room Air 02/01/19 16:05 99 17 Room Air 99 02/01/19 16:05 98.5 56 17 153/84 99 Room Air 02/01/19 15:51 97.7 91 20 164/92 (116) 99 Room Air Intake and Output 02/01/19 02/02/19 19:00 07:00 Intake Total 1000 ml Output Total 500 ml Balance 1000 ml -500 ml Intake IV Total 1000 ml Output Urine Total 500 ml # Voids 1 Laboratory Tests Test 02/01/19 16:30 02/01/19 16:35 02/02/19 06:34 02/02/19 07:57 Urine Color Yellow Urine Appearance Clear Urine pH 8 (4.5-8.0) Urine Specific [place] 1.010 (1.005-1.035) Urine Protein 2+ (NEGATIVE) H Urine Glucose (UA) 2+ (NEGATIVE) H Urine Ketones 1+ (NEGATIVE) H Urine Blood Negative (NEGATIVE) Urine Nitrite Negative (NEGATIVE) Urine Bilirubin Negative (NEGATIVE) Urine Urobilinogen Normal MG/DL (0.0-1.0) Urine Leukocyte Esterase Negative (NEGATIVE) Urine RBC 0-2 /HPF (0 - 0) H Urine WBC 0-2 /HPF (0 - 0) Urine Squamous Epithelial Cells None /LPF (NONE/OCC) Urine Bacteria Few /HPF (NONE) White Blood Count 13.4 K/UL (4.8-10.8) H 15.7 K/UL (4.8-10.8) H Red Blood Count 5.15 M/UL (4.70-6.10) 5.03 M/UL (4.70-6.10) Hemoglobin 15.4 G/DL (14.2-18.0) 15.0 G/DL (14.2-18.0) Hematocrit 43.4 % (42.0-52.0) 42.9 % (42.0-52.0) Mean Corpuscular Volume 84 FL (80-99) 85 FL (80-99) Mean Corpuscular Hemoglobin 29.8 PG (27.0-31.0) 29.8 PG (27.0-31.0) Mean Corpuscular Hemoglobin Concent 35.4 G/DL (32.0-36.0) 35.0 G/DL (32.0-36.0) Red Cell Distribution Width 10.6 % (11.6-14.8) L 11.0 % (11.6-14.8) L Platelet Count 247 K/UL (150-450) 234 K/UL (150-450) Mean Platelet Volume 5.8 FL (6.5-10.1) L 6.2 FL (6.5-10.1) L Neutrophils (%) (Auto) 80.3 % (45.0-75.0) H 84.2 % (45.0-75.0) H Lymphocytes (%) (Auto) 11.5 % (20.0-45.0) L 6.4 % (20.0-45.0) L Monocytes (%) (Auto) 6.7 % (1.0-10.0) 8.8 % (1.0-10.0) Eosinophils (%) (Auto) 0.9 % (0.0-3.0) 0.2 % (0.0-3.0) Basophils (%) (Auto) 0.6 % (0.0-2.0) 0.3 % (0.0-2.0) Sodium Level 137 MMOL/L (136-145) 134 MMOL/L (136-145) L Potassium Level 3.8 MMOL/L (3.5-5.1) 3.7 MMOL/L (3.5-5.1) Chloride Level 100 MMOL/L (98-107) 101 MMOL/L (98-107) Carbon Dioxide Level 29 MMOL/L (21-32) 25 MMOL/L (21-32) Anion Gap 9 mmol/L (5-15) 8 mmol/L (5-15) Blood Urea Nitrogen 17 mg/dL (7-18) 11 mg/dL (7-18) Creatinine 0.8 MG/DL (0.55-1.30) 0.7 MG/DL (0.55-1.30) Estimat Glomerular Filtration Rate > 60 mL/min (>60) > 60 mL/min (>60) Glucose Level 193 MG/DL (74-106) H 172 MG/DL (74-106) H Calcium Level 8.5 MG/DL (8.5-10.1) 8.4 MG/DL (8.5-10.1) L Total Bilirubin 0.5 MG/DL (0.2-1.0) 0.8 MG/DL (0.2-1.0) Aspartate Amino Transf (AST/SGOT) 20 U/L (15-37) 33 U/L (15-37) Alanine Aminotransferase (ALT/SGPT) 29 U/L (12-78) 52 U/L (12-78) Alkaline Phosphatase 68 U/L (46-116) 56 U/L (46-116) Troponin I 0.009 ng/mL (0.000-0.056) Total Protein 7.7 G/DL (6.4-8.2) 7.2 G/DL (6.4-8.2) Albumin 3.9 G/DL (3.4-5.0) 3.4 G/DL (3.4-5.0) Globulin 3.8 g/dL Albumin/Globulin Ratio 1.0 (1.0-2.7) Lipase 141 U/L (73-393) 88 U/L (73-393) Direct Bilirubin 0.2 MG/DL (0.0-0.3) Thyroid Stimulating Hormone (TSH) 0.347 uiU/mL (0.358-3.740) Prothrombin Time 11.3 SEC (9.30-11.50) Prothromb Time International Ratio 1.1 (0.9-1.1) Activated Partial Thromboplast Time 31 SEC (23-33) Height (Feet): 5 Height (Inches): 11.00 Weight (Pounds): 185 Medications Current Medications Medications (Trade) Dose Ordered Sig/Bert Route PRN Reason Start Time Stop Time Status Last Admin Dose Admin Acetaminophen (Tylenol) 650 mg Q4H PRN ORAL RING/fevers/mild pain 02/01/19 20:45 03/03/19 20:44 Acetaminophen/ Hydrocodone Bitart (Mobile 5/325) 1 tab Q1H PRN ORAL Mild Pain (Pain Scale 1-3) 02/02/19 12:45 02/02/19 19:00 Acetaminophen/ Hydrocodone Bitart (Mobile 7.5/325) 1 tab Q1H PRN ORAL Moderate Pain (Pain Scale 4-6) 02/02/19 12:45 02/02/19 19:00 Al Hydroxide/Mg Hydroxide (Mylanta) 15 ml Q1H PRN ORAL gi upset 02/02/19 12:45 02/02/19 19:00 Amlodipine Besylate (Norvasc) 5 mg EVERY 12 HOURS ORAL 02/01/19 21:00 03/03/19 20:59 02/01/19 22:38 Atropine Sulfate (Atropine 0.4mg/ ml) 0.5 mg Q5M PRN IVP HR<40 02/02/19 12:45 02/02/19 19:00 Dextrose (Dextrose 50%) 25 ml Q30M PRN IV Hypoglycemia 02/01/19 20:45 03/03/19 20:44 Dextrose (Dextrose 50%) 50 ml Q30M PRN IV Hypoglycemia 02/01/19 20:45 03/03/19 20:44 Diphenhydramine HCl (Benadryl) 25 mg Q15M PRN IVP Itching 02/02/19 12:45 02/02/19 19:00 Fentanyl Citrate (Sublimaze 100 mcg/2 mL) 25 mcg Q10M PRN IV Moderate Pain (Pain Scale 4-6) 02/02/19 12:45 02/02/19 19:00 Heparin Sodium (Porcine) (Heparin 5000 units/ml) 5,000 units ONCE ONCE SUBQ 02/02/19 21:00 02/02/19 21:01 Hydralazine HCl (Apresoline) 5 mg Q30M PRN IV SBP>160 / DBP>90 02/02/19 12:45 02/02/19 19:00 Hydromorphone HCl (Dilaudid) 0.5 mg Q15M PRN IVP Severe Pain (Pain Scale 7-10) 02/02/19 12:45 02/02/19 19:00 Insulin Aspart (NovoLOG) BEFORE MEALS AND HS SUBQ 02/01/19 22:00 03/03/19 21:59 02/02/19 06:09 Iohexol (OMNIPAQUE-300 100ml) 100 ml NOW PRN INJ Radiology Procedure 02/01/19 17:45 02/03/19 17:45 Labetalol HCl (Normodyne) 5 mg Q10M PRN IV SBP>160 / DBP>90 02/02/19 12:45 02/02/19 19:00 Lactated Ringer's 1,000 ml @ 10 mls/hr Q24H IVLG 02/02/19 12:37 02/02/19 14:36 Lorazepam (Ativan 2mg/ml 1ml) 1 mg Q15M PRN IV For Anxiety 02/02/19 12:45 02/02/19 19:00 Meperidine HCl (Demerol) 25 mg Q5M PRN IVP Shivering.May repeat x 1 02/02/19 12:45 02/02/19 19:00 Metoclopramide HCl (Reglan) 10 mg Q1H PRN IVP Nausea & Vomiting 02/02/19 12:45 02/02/19 19:00 Midazolam HCl (Versed 2mg/2ml vial) 1 mg Q15M PRN IVP For Anxiety 02/02/19 12:45 02/02/19 19:00 Morphine Sulfate (Morphine Sulfate) 2 mg Q3H PRN IVP PAIN 4-10 02/01/19 20:45 02/08/19 20:44 02/02/19 10:56 Ondansetron HCl (Zofran) 4 mg EVERY 4 HOURS PRN IVP Nausea & Vomiting 02/01/19 20:45 03/03/19 20:44 Ondansetron HCl (Zofran) 4 mg Q1H PRN IVP Nausea & Vomiting 02/02/19 12:45 02/02/19 19:00 Oxycodone/ Acetaminophen (Percocet 5-325) 1 tab Q1H PRN ORAL Severe Pain (Pain Scale 7-10) 02/02/19 12:45 02/02/19 19:00 Piperacillin Sod/ Tazobactam Sod 3.375 gm/Sodium Chloride 110 ml @ 27.5 mls/hr EVERY 8 HOURS IVPB 02/01/19 23:00 02/08/19 22:59 02/02/19 06:07 Potassium Chloride/Sodium Chloride 1,000 ml @ 125 mls/hr Q8H IV 02/01/19 22:00 03/03/19 21:59 02/02/19 06:07 Assessment/Plan Problem List: (1) Acute cholecystitis Assessment & Plan: This is a 59-year-old male with right quad abdominal pain, nausea, emesis, radiation to the back, leukocytosis, positive HIDA, ultrasound with thickened gallbladder wall cholelithiasis indicative of acute cholecystitis as well as CT with similar findings. Positive Zarate sign. Patient with worsening leukocytosis since admission on IV antibiotics failing medical therapy. Surgery is indicated and recommended. Risk-benefit altered discussed patient in detail. Patient expressed understanding consented surgery. N.p.o. IV fluids IV antibiotics Consent to OR for laparoscopic possible open cholecystectomy with potential intraoperative cholangiogram Thank you ICD Codes: K81.0 - Acute cholecystitis SNOMED: 08389236 (2) Abdominal pain Assessment & Plan: see above ICD Codes: R10.9 - Unspecified abdominal pain SNOMED: 94133369 (3) Acute appendicitis Assessment & Plan: Called by the radiologist and asked to evaluate the appendix on the operating room. CT scan clearly evident for acute cholecystitis but there is dilatation of the appendix identified on the CT scan as well and given plan on going operating room for labs of cholecystectomy was asked to evaluate for appendicitis as well given the rare potential chance of both conditions. Discussed with patient these findings he does have some right lower quadrant abdominal pain which could be referred from the right upper but given this will plan to evaluate the appendix to on the operating room. Consented for this as well. ICD Codes: K35.80 - Unspecified acute appendicitis SNOMED: 07990924 Douglas Willams Feb 02, 2019 13:22
[2019-02-02] MEDS ORDERED: Metoprolol Tartrate 5mg/5ml Inj ONE (13:44)
--- NOTE | 2019-02-02 13:55 | Immediate Post-Op Evaluation ---
Immediate Post-Op Evalulation Immediate Post-Op Evalulation Procedure: Laparoscopic Cholecystectomy Date of Evaluation: Feb 02, 2019 Time of Evaluation: 15:29 IV Fluids: 600 LR Blood Products: 0 Estimated Blood Loss: 100 Urinary Output: 0 Blood Pressure Systolic: 114 Blood Pressure Diastolic: 63 Pulse Rate: 78 Respiratory Rate: 16 O2 Sat by Pulse Oximetry: 100 Temperature (Fahrenheit): 98.2 Pain Score (1-10): 2 Nausea: No Vomiting: No Complications 0 Patient Status: awake, reacts, patent, extubated, none Hydration Status: adequate Dru Grams Ancef IV Given Within 1 Hr of Incision: Yes Time Given: 13:41 Manjinder Love MD Feb 02, 2019 13:55
[2019-02-02] MEDS ORDERED: Surgicel 4in x 8in TOPIC ONE (14:30)
[2019-02-02] MEDS ORDERED: Naloxone 0.4mg/ml Inj ONE (14:42)
[2019-02-02] MEDS ORDERED: Neostigmine 1mg/ml 10ml Inj ONE (14:42)
[2019-02-02] MEDS ORDERED: Glycopyrrolate 0.2mg/ml 1ml Vial ONE (14:42)
--- NOTE | 2019-02-02 16:13 | Brief Operative Note ---
Immediate Post Operative Note Operative Note Pre-op Diagnosis: acute cholecystitis possible acute appendicitis Procedure: Laparoscopic cholecystectomy Post-op Diagnosis: 1 acute gangrenous cholecystitis 2 normal appendix Surgeon: Douglas Willams Anesthesiologist: Manjinder Love Anesthesia: general, local Specimen: yes Complications: none Condition: stable Fluids: See records Estimated Blood Loss: minimal Drains: none Implant(s) used?: No Douglas Willams Feb 02, 2019 16:13
[2019-02-02] MEDS ORDERED: HYDROcodone/Acetamin 10/325 tab ORAL PRN (16:15)
[2019-02-02] MEDS ORDERED: Milk of Magnesia 30ml Ud ORAL PRN (16:19)
--- NOTE | 2019-02-02 19:15 | Operative Note - Dictated ---
DATE OF OPERATION: 02/02/2019 PREOPERATIVE DIAGNOSES: 1. Acute cholecystitis. 2. Possible acute appendicitis POSTOPERATIVE DIAGNOSES: 1. Acute gangrenous necrotic cholecystitis. 2. Normal appendix. OPERATION PERFORMED: Laparoscopic cholecystectomy. ATTENDING SURGEON: Douglas Willams M.D. CABLEWAY OPERATOR: None. ANESTHESIOLOGIST: Manjinder Love M.D. ANESTHESIA: General GETA plus local. ESTIMATED BLOOD LOSS: Minimal. IV FLUIDS: Please see anesthesia records. COMPLICATIONS: None. DRAINS: None. COUNTS: Sponge and needle count are correct x2. WOUND CONSULTATION: Class 3. SPECIMENS: Gallbladder and contained stones sent to pathology for review. ANTIBIOTICS: The patient on scheduled IV Zosyn for acute active infectious process. INDICATIONS FOR PROCEDURE: The patient is a 59-year-old male with history of diabetes presented to [facility] for evaluation of worsening right upper quadrant abdominal pain with associated nausea, emesis, and radiation of pain to the back. The patient had leukocytosis. Ultrasound consistent with acute cholecystitis and positive Zarate sign as well as a CT scan consistent with acute cholecystitis with thickened gallbladder wall, 1 cm pericholecystic fluid, inflammation, and ascites fluid. Furthermore on the CT, the radiologist evaluated the appendix identified to be fairly dilated and there was question of potential acute appendicitis as well. Given these findings, the patient was admitted for further care, management, placed on IV antibiotics, and subsequent 24 hours the pain persisted. Exam with persistent positive Zarate's and a worsening leukocytosis. HIDA scan was evaluated and cystic duct obstruction was noted. Given these findings, surgery was indicated and recommended. This patient was failing medical management of acute cholecystitis. Risks, benefits, alternatives were discussed with the patient in detail, expressed understanding and consented to surgery. OPERATIVE NOTE: The patient was taken to the operating room and placed on the operative table in supine position with bilateral arms out. All bony prominences were well padded. SCDs were placed. Preoperative time-out was taken identifying the patient, procedure, operative staff, and surgical staff. General anesthesia was induced and the patient was intubated. The abdomen was clipped, prepped, draped in standard surgical fashion. He was started on scheduled IV antibiotics. The patient voided prior to entering the operating room so no Freedman catheter was inserted. The abdomen was clipped, prepped, draped in standard surgical fashion. Local anesthetic was infiltrated in all skin incision port sites throughout the procedure for the patient's comfort. An infraumbilical incision was made using a number fresh #11 scalpel, carried down to the fascia, it was elevated and incised. Entry into the abdomen was obtained using open technique without complication. A 12 mm Jordon trocar was inserted and abdomen was insufflated to 12 to 15 mmHg. The patient tolerated the insufflation well. Laparoscope was inserted and the abdomen was inspected. There was no injury from initial trocar placement noted. There was fair amount of serous fluid identified throughout the abdomen in all quadrants of the pelvis. Secondary trocars were placed under direct visualization beginning with a 12 mm subxiphoid followed by two 5 mm subcostal ports. At this time, we turned our attention very quickly to the right lower quadrant where the cecum was identified and tenia was followed down to the confluence where a normal mildly dilated appendix was noted. No signs of inflammation or signs of induration, acute appendicitis, or early appendicitis identified. It was fairly large and completely normal appendix. At this time, we turned our attention to right upper quadrant. The omentum was draped over the gallbladder and gently dissected down. Once the gallbladder was identified, it was noted to be gangrenous and with area of necrosis. It was very distended and dilated and required drainage. A laparoscopic needle was used and the gallbladder was drained. The dome of the gallbladder was grasped using most lateral port and retracted over the liver. The infundibulum was gently dissected out. The critical view could be obtained. Once critical view could be obtained, it was clearly noted that there was short of cystic duct but appropriate enough for stapling without complication. The cystic artery was doubly clipped and divided. The only remaining structure entering into the gallbladder infundibulum was the cystic duct. The cystic duct was doubly clipped and divided. The gallbladder was taken off the liver bed using electrocautery. The gallbladder and contained stones were placed in endoscopic retrieval bag and removed from the abdomen using the umbilical port site. Hemostasis was obtained using electrocautery from the gallbladder fossa. Following this, the abdomen was irrigated with copious amounts of warm normal saline until clear and suctioned out. On completion of doing the ins and outs, it was noticed that 250 mL of fluid was evacuated over what had been irrigated given so likely approximately 200 mL plus serous fluid identified in the abdomen. At this time, Surgicel was placed in the gallbladder fossa and we began the conclusion of our procedure. Secondary trocars removed under direct visualization followed by the umbilical trocar site. The abdomen was desufflated. The umbilical trocar site fascia and the epigastric port site fascia were reapproximated using [id number] #0 Vicryl sutures. The remaining skin incisions were cleansed and reapproximated using 4-0 Monocryl subcuticular interrupted sutures. Steri-Strips and dressings were applied. The patient tolerated procedure well and was extubated and taken to postanesthetic care in stable condition. Douglas Willams M.D. DR: Fannie JOB#: [id number] CC: NARCISO
--- NOTE | 2019-02-02 20:00 | NUR ---
NURSE NOTES: Received patient awake in bed, able to make needs known, no s/s of acute distress. IS at the bedside, patient verbalized being taught by RT how to use it. IV access asymptomatic running IVF at 125ml/hr. Patient void x1 after procedure. Surgical dressing x3, dry and intact. Patient c/o of 5/10 pain, will administer pain medication as ordered by MD.
[2019-02-02] MEDS ORDERED: Heparin 5000 units/ml inj SUBQ ONE (21:00)
[2019-02-02] MEDS: HYDROmorphone 1mg/ml Carpuject IVP PRN (21:11)
[2019-02-03] VITALS: BP 104/72
--- NOTE | 2019-02-03 02:30 | History and Physical Report ---
DATE OF ADMISSION: 02/01/2019 REASON FOR ADMISSION: Acute cholecystitis. HISTORY OF PRESENT ILLNESS: This is a 59-year-old male with diabetes mellitus and hyperlipidemia. He presented to the emergency room with a one-day history of severe abdominal pain associated with nausea and emesis. The pain radiated to the back and located predominantly in the right lower quadrant. The patient apparently has had episodic bouts of this pain for several months, but over the past week, it has increased in frequency and severity. The patient had a CAT scan in the emergency room last night that suggested acute cholecystitis. Abdominal ultrasound today was confirmatory. PAST MEDICAL HISTORY: Hyperlipidemia, hypertension, type 2 diabetes mellitus. MEDICATIONS: Reviewed and reconciled. ALLERGIES: None known. SOCIAL HISTORY: Negative for smoking, alcohol, or substance abuse. FAMILY HISTORY: Noncontributory. REVIEW OF SYSTEMS: A 10-point review of systems was otherwise unremarkable. PHYSICAL EXAMINATION: VITAL SIGNS: Temperature 100.6, blood pressure 132/80, heart rate 93, respiratory rate 20. HEENT: Conjunctiva pink. Oropharynx clear. NECK: Supple. Jugular venous pressure normal. LUNGS: Clear. CARDIAC: Regular. Normal S1, S2 with no murmur. ABDOMEN: Soft, but tender in the right upper quadrant predominantly. No guarding. There is a positive Zarate sign and there is no edema. NEUROLOGIC: Nonfocal. LABORATORY DATA: White count 15.7, hemoglobin 15. Sodium 134, potassium 3.7, BUN 11, creatinine 0.7, glucose 172. TSH 0.34. Urinalysis with no active sediment. IMPRESSION: 1. Acute cholecystitis. 2. Leukocytosis. PLAN: 1. Continue IV antimicrobials mainly Zosyn as initiated last night. 2. NPO. 3. Insulin coverage by sliding scale. 4. Surgical evaluation in progress. 5. Anticipate cholecystectomy. 6. Perioperative risk under general anesthesia is not expected to be increased in general population. Michael Arredondo M.D. : IVORY JOB#: [id number] CC:
[2019-02-03] MEDS: NS w/KCl 20mEq 1000ml 1,000 ML IV SCH ×3 (03:27→20:38)
[2019-02-03 04:00] VITALS: BP 118/69
[2019-02-03] MEDS: Piperacillin/Tazobactam 3.375 GM in NS 110 ML IVPB SCH ×3 (05:06→21:36)
[2019-02-03] MEDS: NovoLOG Insulin Flexpen SUBQ SCH ×4 (05:39→20:57)
[2019-02-03] MEDS: HYDROmorphone 1mg/ml Carpuject IVP PRN (06:01)
[2019-02-03 07:16] LABS: BASOPHILS % (AUTO) 0.6 % (0.0-2.0); EOSINOPHILS % (AUTO) 1.1 % (0.0-3.0); HEMATOCRIT 38.9 % (42.0-52.0); HEMOGLOBIN 13.2 G/DL (14.2-18.0); LYMPHOCYTES % (AUTO) 10.2 % (20.0-45.0); MEAN CORPUSCULAR VOLUME 86 FL (80-99); MONOCYTES % (AUTO) 8.1 % (1.0-10.0); PLATELET COUNT 219 K/UL (150-450); RED BLOOD COUNT 4.51 M/UL (4.70-6.10); RED CELL DISTRIBUTION WIDTH 11.4 % (11.6-14.8); WHITE BLOOD COUNT 11.3 K/UL (4.8-10.8)
--- NOTE | 2019-02-03 07:26 | NUR ---
HAND-OFF: Report given to MIESHA Nieves.
--- NOTE | 2019-02-03 07:27 | NUR ---
NURSE NOTES: report received from Rolo. Patient awake and oriented x 4. Sitting in high fowlers position in bed eating breakfast. Does not complain of any nausea or vomiting. Patient complains of pain 7/10, will follow pain protocol. Patient does not want to wait for next dose of dilaudid. Inspected abdomen, patient reports slight pain with touch. Bowel sounds in all four quadrants. All four dressings are dry and intact. Patient has a 20 janice IV patent in the left AC. Bed in lowest position, locked, and call light within reach. Will continue to follow plan of care.
[2019-02-03 07:30] LABS: ALANINE AMINOTRANSFERASE 88 U/L (12-78); ALBUMIN 2.8 G/DL (3.4-5.0); ALBUMIN/GLOBULIN RATIO 0.7 (1.0-2.7); ALKALINE PHOSPHATASE 46 U/L (46-116); ANION GAP 6 mmol/L (5-15); ASPARTATE AMINO TRANSFERASE 62 U/L (15-37); BILIRUBIN,TOTAL 0.6 MG/DL (0.2-1.0); BLOOD UREA NITROGEN 14 mg/dL (7-18); CARBON DIOXIDE 27 MMOL/L (21-32); CHLORIDE 106 MMOL/L (98-107); CREATININE 0.9 MG/DL (0.55-1.30); POTASSIUM 3.6 MMOL/L (3.5-5.1); SODIUM 139 MMOL/L (136-145)
--- NOTE | 2019-02-03 07:56 | 48 Hour Post Anesthesia Eval ---
Post Anesthesia Evaluation Procedure: Laparoscopic Cholecystectomy Date of Evaluation: Feb 03, 2019 Blood Pressure Systolic: 118 0: 69 Pulse Rate: 75 Respiratory Rate: 18 Temperature (Fahrenheit): 98.3 O2 Sat by Pulse Oximetry: 98 Airway: patent Nausea: No Vomiting: No Pain Intensity: 2 Hydration Status: adequate Cardiopulmonary Status: at baseline Mental Status/LOC: patient returned to baseline Post-Anesthesia Complications: 0 Follow-up care needed: N/A - further care as per primary team Yael Klein MD Feb 03, 2019 07:56
[2019-02-03 08:00] VITALS: BP 101/71
[2019-02-03] MEDS: Docusate 100mg cap ORAL SCH ×2 (08:43→18:25)
--- NOTE | 2019-02-03 09:50 | NUR ---
PT EVALUATION NOTE Patient seen for initial evaluation. Patient presents with generalized weakness and pain s/p surgical procedure which affects patient's ability to perform mobility tasks. Patient requires SBA for bed mobility, transfers and ambulation. Patient able to ambulate 150 ft without assistive device with slowed velocity. Patient will benefit from skilled inpatient PT intervention to address strength, balance and safety for improved level of functional mobility. Patient is cleared to ambulate with nursing supervision. Recommend discharge home once medically cleared by MD. No DME needs anticipated at this time. Addendum: 02/03/19 at 1242 by SHANELLE VELAZQUEZ PT Amended: Links added.
--- NOTE | 2019-02-03 10:00 | NUR ---
NURSE NOTES: Patient OOB with PT. PT states that patient is able to get OOB with staff with minimal assistance. Patient denies any new pain after working with physical therapy.
[2019-02-03 12:00] VITALS: BP 110/69
[2019-02-03] MEDS ORDERED: NS Irrig 1000ml ONE (13:00)
[2019-02-03] MEDS ORDERED: Rocuronium Bromide 50mg/5ml Inj IV ONE (13:00)
[2019-02-03] MEDS ORDERED: LR 1000ml ONE (13:00)
[2019-02-03] MEDS ORDERED: Sterile Water Irrig 1000ml IRRIG ONE (13:00)
--- NOTE | 2019-02-03 14:17 | Surgery Progress Note ---
Surgery Progress Note Subjective Procedure Performed Laparoscopic cholecystectomy Symptoms: improved, tolerating diet, voiding well, passing flatus Objective Last 24 Hour Vital Signs Date Time Temp Pulse Resp B/P (MAP) Pulse Ox O2 Delivery O2 Flow Rate FiO2 02/03/19 12:00 98.0 87 18 110/69 (83) 99 02/03/19 09:00 Room Air 02/03/19 08:44 87 101/71 02/03/19 08:00 98.7 87 18 101/71 (81) 97 02/03/19 07:56 75 18 98 02/03/19 04:00 98.3 75 18 118/69 (85) 98 02/03/19 00:00 97.8 71 18 104/72 (83) 98 02/02/19 21:46 Room Air 02/02/19 21:41 98.0 02/02/19 21:10 80 111/66 02/02/19 20:00 98.3 84 19 114/71 (85) 98 02/02/19 16:25 98.0 80 17 111/66 100 Nasal Cannula 3 02/02/19 16:15 82 19 111/67 100 Nasal Cannula 3 02/02/19 16:00 82 18 116/78 100 Nasal Cannula 3 02/02/19 15:48 86 16 116/78 100 Simple Mask 6 02/02/19 15:38 85 15 113/64 100 Simple Mask 6 02/02/19 15:28 80 15 107/63 100 Simple Mask 6 02/02/19 15:23 77 16 110/61 100 Simple Mask 6 02/02/19 15:18 98.2 78 19 114/63 100 Simple Mask 6 02/02/19 15:15 78 16 100 I&O Intake and Output 02/02/19 02/03/19 19:00 07:00 Intake Total 900 ml Output Total 100 ml 950 ml Balance 800 ml -950 ml IV Total 900 ml Output Urine Total 950 ml Estimated Blood Loss 100 ml Dressing: dry Wound: clean Cardiovascular: RSR Respiratory: clear Abdomen: soft, non-tender, present bowel sounds, non-distended Extremities: no edema, no tenderness, no cyanosis Laboratory Tests Test 02/03/19 06:30 White Blood Count 11.3 K/UL (4.8-10.8) H Red Blood Count 4.51 M/UL (4.70-6.10) L Hemoglobin 13.2 G/DL (14.2-18.0) L Hematocrit 38.9 % (42.0-52.0) L Mean Corpuscular Volume 86 FL (80-99) Mean Corpuscular Hemoglobin 29.2 PG (27.0-31.0) Mean Corpuscular Hemoglobin Concent 33.9 G/DL (32.0-36.0) Red Cell Distribution Width 11.4 % (11.6-14.8) L Platelet Count 219 K/UL (150-450) Mean Platelet Volume 6.0 FL (6.5-10.1) L Neutrophils (%) (Auto) 80.0 % (45.0-75.0) H Lymphocytes (%) (Auto) 10.2 % (20.0-45.0) L Monocytes (%) (Auto) 8.1 % (1.0-10.0) Eosinophils (%) (Auto) 1.1 % (0.0-3.0) Basophils (%) (Auto) 0.6 % (0.0-2.0) Sodium Level 139 MMOL/L (136-145) Potassium Level 3.6 MMOL/L (3.5-5.1) Chloride Level 106 MMOL/L (98-107) Carbon Dioxide Level 27 MMOL/L (21-32) Anion Gap 6 mmol/L (5-15) Blood Urea Nitrogen 14 mg/dL (7-18) Creatinine 0.9 MG/DL (0.55-1.30) Estimat Glomerular Filtration Rate > 60 mL/min (>60) Glucose Level 130 MG/DL (74-106) H Calcium Level 8.0 MG/DL (8.5-10.1) L Total Bilirubin 0.6 MG/DL (0.2-1.0) Aspartate Amino Transf (AST/SGOT) 62 U/L (15-37) H Alanine Aminotransferase (ALT/SGPT) 88 U/L (12-78) H Alkaline Phosphatase 46 U/L (46-116) Total Protein 6.6 G/DL (6.4-8.2) Albumin 2.8 G/DL (3.4-5.0) L Globulin 3.8 g/dL Albumin/Globulin Ratio 0.7 (1.0-2.7) L Assessment Post-op Diagnosis 1 acute gangrenous cholecystitis 2 normal appendix Plan Problems: (1) Acute cholecystitis Assessment & Plan: This is a 59-year-old male with right quad abdominal pain, nausea, emesis, radiation to the back, leukocytosis, positive HIDA, ultrasound with thickened gallbladder wall cholelithiasis indicative of acute cholecystitis as well as CT with similar findings. Positive Zarate sign. s/p lap tesfaye doing better d/c planning for tomorrow (2) Abdominal pain Assessment & Plan: see above (3) Acute appendicitis Assessment & Plan: Called by the radiologist and asked to evaluate the appendix on the operating room. CT scan clearly evident for acute cholecystitis but there is dilatation of the appendix identified on the CT scan as well and given plan on going operating room for labs of cholecystectomy was asked to evaluate for appendicitis as well given the rare potential chance of both conditions. Discussed with patient these findings he does have some right lower quadrant abdominal pain which could be referred from the right upper but given this will plan to evaluate the appendix to on the operating room. Consented for this as well. Douglas Willams Feb 03, 2019 14:17
--- NOTE | 2019-02-03 15:11 | CDS Physician Query ---
Clarification is required for compliance, coding accuracy, and to reflect severity of illness for this patient Dear Dr. Michael Arredondo Date: 02/03/2019 CDS name: Charline Jean Clinical Documentation states: Op note: Acute gangrenous necrotic cholecystitis...59-year-old male with history of diabetes presented to [facility] for evaluation of worsening right upper quadrant abdominal pain with associated nausea, emesis, and radiation of pain to the back. The patient had leukocytosis. Vitals/labs on admission: WBC 13.4, OK 99, Tmax 98.5, RR 20 Treatment: IV pip-tazo According to the clinical indications above, please indicate below the condition PHYSICIAN RESPONSE: [] Sepsis [] SIRS [] SIRS with organ dysfunction [] Septic Shock [] Not applicable [] Other: Present on Admission: [] Yes [] No [] Clinically Undetermined Physician signature Date Please also document in your Progress Notes and/or Discharge Summary and indicate if the condition was present on admission. NARCISO
[2019-02-03 16:00] VITALS: BP 112/71
--- NOTE | 2019-02-03 19:16 | NUR ---
HAND-OFF: Report given to Rolo WHITESIDE.
--- NOTE | 2019-02-03 19:54 | NUR ---
NURSE NOTES: Received patient awake in bed, no s/s of acute distress, c/o 3/10 pain. IV access asymptomatic, patent, running IVF maintenance at 125ml/hr. Bed low and locked, IS at the bedside, patient wearing non slip socks. Surgical dressing dry and intact.
[2019-02-03 20:00] VITALS: BP 121/75
[2019-02-04] VITALS: BP 111/70
--- NOTE | 2019-02-04 02:15 | Progress Note ---
DATE: 02/03/2019 INTERNAL MEDICINE PROGRESS NOTE SUBJECTIVE: Postop day number #1, laparoscopic cholecystectomy. No nausea or vomiting. Minimal pain. Afebrile. OBJECTIVE: VITAL SIGNS: Blood pressure 110/69, respirations 18, pulse 87. LUNGS: Clear. CARDIAC: Regular. ABDOMEN: Slightly tender over the right upper quadrant, but no guarding. EXTREMITIES: Without edema. LABORATORY DATA: White count down to 11, hemoglobin 13. Chemistry panel within normal limits. IMPRESSION: 1. Acute cholecystitis. 2. Necrotic gallbladder, status post cholecystectomy. 3. Type 2 diabetes mellitus. 4. Hypertension. PLAN: 1. Continue antimicrobials. 2. Postop care. 3. Advance diet. 4. Surgical followup. Michael Arredondo M.D. DR: IVORY JOB#: [id number] CC:
[2019-02-04 04:00] VITALS: BP 109/69
[2019-02-04] MEDS: NS w/KCl 20mEq 1000ml 1,000 ML IV SCH (05:37)
[2019-02-04] MEDS: Piperacillin/Tazobactam 3.375 GM in NS 110 ML IVPB SCH ×2 (05:38→15:17)
[2019-02-04] MEDS: HYDROmorphone 1mg/ml Carpuject IVP PRN (05:42)
[2019-02-04] MEDS: NovoLOG Insulin Flexpen SUBQ SCH ×3 (05:45→17:20)
--- NOTE | 2019-02-04 07:00 | NUR ---
HAND-OFF: Report given to MIESHA Ace.
--- NOTE | 2019-02-04 07:05 | NUR ---
NURSE NOTES: Report received from Rolo WHITESIDE. Patient awake and alert x 4. Patient sitting up right in bed eating breakfast. Patient continues to tolerate regular diet. No complains of nausea or vomitting. Patient does report pain at this time. Educated the patient to call when wanting to get up and to get up and go for a walk. Urinal and call light within reach. Bed in lowest position, locked, and alarmed. will continue to follow plan of care.
[2019-02-04 08:00] VITALS: BP 128/72
--- NOTE | 2019-02-04 09:00 | NUR ---
PT NOTE Patient is at independent/supervised level for all functional mobility, skilled inpatient PT intervention no longer indicated. Patient discharged from PT, cleared to ambulate in Db ponce RN notified.
[2019-02-04] MEDS: Docusate 100mg cap ORAL SCH ×2 (09:02→17:21)
[2019-02-04 11:50] VITALS: BP 114/75
--- NOTE | 2019-02-04 14:36 | NUR ---
CASE MANAGEMENT:REVIEW 59 YR OLD MALE PRESENTED TO ER CC: ABDOMINAL PAIN AND FEVER 101.0 LAST NIGHT SI: CHOLECYSTITIS 97.7 91 20 164/92 99% ON RA WBC+13.4 IS: TYLENOL 500MG WILLOW ANALYST IV PEPCID IV TORADOL 1L NS BOLUS IV ZOFRAN IV MORPHINE IV ZOSYN IV DILAUDID US ABD CT ABD/PELVIS : TO MED/SURG 02/02/19 SI: ACUTE GANGRENOUS CHOLECYSTITIS 98.0 80 17 111/66 100% ON 3L/NC IS: TO SURGERY FOR LAP MERT : MED/SURG STATUS
--- NOTE | 2019-02-04 14:45 | NUR ---
CASE MANAGEMENT:REVIEW 02/04/19 SI: POD #2 S/P LAP MERT 98.9 74 19 114/75 97% ON RA IS: IV ZOSYN Q8HRS IVF+KCL@125/HR NORVASC PO Q12 : MED/SURG STATUS
[2019-02-04 16:03] VITALS: BP 117/71
--- NOTE | 2019-02-04 18:36 | Surgery Progress Note ---
Surgery Progress Note Subjective Procedure Performed Laparoscopic cholecystectomy Symptoms: improved, tolerating diet, voiding well, passing flatus, BM, pain decreased Objective Last 24 Hour Vital Signs Date Time Temp Pulse Resp B/P (MAP) Pulse Ox O2 Delivery O2 Flow Rate FiO2 02/04/19 16:03 99.5 85 21 117/71 (86) 98 85 02/04/19 11:50 98.9 74 19 114/75 (88) 97 74 02/04/19 09:02 78 128/72 02/04/19 09:00 Room Air 02/04/19 08:00 98.3 78 21 128/72 (90) 97 78 02/04/19 06:12 98.1 02/04/19 04:00 98.1 71 18 109/69 (82) 99 02/04/19 00:00 97.9 72 18 111/70 (84) 99 02/03/19 21:28 Room Air 02/03/19 20:55 77 121/75 02/03/19 20:00 98.7 77 18 121/75 (90) 99 I&O Intake and Output 02/03/19 02/04/19 19:00 07:00 Intake Total 1917.5 ml 637.5 ml Output Total 1300 ml 800 ml Balance 617.5 ml -162.5 ml Intake Oral 960 ml IV Total 957.5 ml 637.5 ml Output Urine Total 1300 ml 800 ml Dressing: dry Wound: clean Cardiovascular: RSR Respiratory: clear Abdomen: soft, non-tender, present bowel sounds, non-distended Extremities: no edema, no tenderness, no cyanosis Assessment Post-op Diagnosis 1 acute gangrenous cholecystitis 2 normal appendix Plan Problems: (1) Acute cholecystitis Assessment & Plan: This is a 59-year-old male with right quad abdominal pain, nausea, emesis, radiation to the back, leukocytosis, positive HIDA, ultrasound with thickened gallbladder wall cholelithiasis indicative of acute cholecystitis as well as CT with similar findings. Positive Zarate sign. s/p lap tesfaye doing better d/c planning (2) Abdominal pain Assessment & Plan: see above (3) Acute appendicitis Assessment & Plan: Called by the radiologist and asked to evaluate the appendix on the operating room. CT scan clearly evident for acute cholecystitis but there is dilatation of the appendix identified on the CT scan as well and given plan on going operating room for labs of cholecystectomy was asked to evaluate for appendicitis as well given the rare potential chance of both conditions. Discussed with patient these findings he does have some right lower quadrant abdominal pain which could be referred from the right upper but given this will plan to evaluate the appendix to on the operating room. Consented for this as well. Douglas Willams Feb 04, 2019 18:36
[2019-02-04] MEDS ORDERED: ACETAMINOPHEN-1 EAC1 ORAL (19:00)
--- NOTE | 2019-02-04 19:00 | NUR ---
NURSE NOTES: discharge instruction and prescription given to the patient. Patient will see Dr. Willams on 02/25/2019. Surgical site are clean and dry. patient knows when to seek for medical attention. Addendum: 02/04/19 at 1923 by NICKOLAS GALVEZ RN Patient will fill the medication form the pharmacy of choice. All belongings accounted for.
[2019-02-04] MEDS ORDERED: COLACE100 MG ORAL (19:01)
--- NOTE | 2019-02-04 19:20 | NUR ---
HAND-OFF: Report given to Shea and endorsed to d/c patient when patient's daughter arrives.
--- NOTE | 2019-02-04 21:16 | NUR ---
NURSE NOTES: Patient left unit with daughter, patient prescription and packet handed to daughter. Surgical dressing/s dry and intact. IV removed, hospital bracelet removed. Patient left with daughter in private vehicle.
--- NOTE | 2019-02-06 13:27 | Discharge Summary ---
Discharge Summary Discharge Summary _ DATE OF ADMISSION: 02/01/2019 DATE OF DISCHARGE: 02/04/2019 DISCHARGED BY: REASON FOR ADMISSION: 89 years old male with past medical history of diabetes mellitus and hyperlipidemia, presented to emergency department with severe abdominal pain for 1 day with associated nausea and emesis. Pain radiated to the back and located predominantly in the right lower quadrant. Patient had episodic bouts of the pain for several months , but over the past week they increased significantly in frequency and severity. CT scan of the abdomen and pelvis revealed cholelithiasis and was suggestive of acute cholecystitis. Patient initially presented with leukocytosis WBC 13.4, stable hemoglobin and hematocrit. Stable LFT, electrolytes and renal parameters. Patient subsequently admitted to medical surgical floor for further management. CONSULTANTS: surgery Dr. Willams [facility] COURSE: Patient admitted to medical surgical floor. Patient was kept n.p.o. , on IV fluids and empiric antibiotics. Surgery consult was requested. Pain management was addressed. Abdominal ultrasound revealed cholelithiasis. Gallbladder wall thickening, pericholecystic fluid and positive sonographic Zarate sign all raised concern for acute cholecystitis. No biliary ductal dilatation. Leukocytosis was trending up. Patient also had low-grade fever. Patient subsequently undergone HIDA scan , which revealed nonvisualized gallbladder , consistent with acute cholecystitis. Patient was taken to the operating room on 02/02 , where he undergone laparoscopic cholecystectomy and found to have acute gangrenous necrotic cholecystitis and normal appendix. Pathology of removed gallbladder revealed gangrenous cholecystitis. Cholelithiasis. One benign reactive lymph node. Postoperatively pain management was addressed as needed. Patient slowly started on liquid diet and was advanced as tolerated. Antiemetic provided as needed. Broad-spectrum antibiotic continued. Ambulation was encouraged. Incentive spirometry was encouraged while in the bed. DVT and GI prophylaxis provided. Blood sugar was managed with sliding scale of insulin. Bowel regimen instituted. Pain controlled. Leukocytosis was trending down, no further fevers. Patient was able to tolerate diet. Patient clinically stabilized and was ready for discharge home. FINAL DIAGNOSES: Acute gangrenous necrotic cholecystitis Status post laparoscopic cholecystectomy Type 2 diabetes mellitus Hypertension after surgery leukocytosis trending down prior to discharge 11.3. DISCHARGE MEDICATIONS: See Medication Reconciliation list. DISCHARGE INSTRUCTIONS: Patient was discharged home. Follow-up with the surgeon as outpatient as advised. I have been assigned to dictate discharge summary for this account. I was not involved in the patient's management. Nereyda Hearn NP Feb 06, 2019 13:27
--- NOTE | 2019-02-09 09:37 | Cardiology Report ---
APPROVED REPORT EKG Measurement Heart [id number] <Conclusion> Normal sinus rhythm Incomplete right bundle branch block Minimal voltage criteria for LVH, may be normal variant Borderline ECG
== END 2019-02-04 20:30 | disposition home or self-care (01) | DRG 263 ==
LOC: EMR 16:30 → EDBEDREQ 20:32 → MERGE 20:45 → 4E 20:45
PROC: 0FT44ZZ Resection of Gallbladder, Percutaneous Endoscopic Approach (ICD-10-PCS; principal; 2019-02-02 11:00)
DX: K80.00 Calculus of gallbladder with acute cholecystitis without obstruction (principal); K82.A1 Gangrene of gallbladder in cholecystitis; E11.9 Type 2 diabetes mellitus without complications; E78.5 Hyperlipidemia, unspecified; Z79.84 Long term (current) use of oral hypoglycemic drugs; I10 Essential (primary) hypertension
CPT/HCPCS: 36415; 74177; 76700; 78266; 80048; 80053; 80076; 81003; 82962; 83690; 84443; 84484; 85025; 85610; 85730; 93005; 94003; 94150; 96361; 96365; 96372; 96375; 99285; J1815; J2405; J2710; J7030